=== PATIENT | female | born 1940 | race Caucasian/White ===

== ENCOUNTER 2018-06-26 19:04 | Outpatient (REF) | payer MEDICARE, SELFPAY ==
[2018-06-26 19:53] LABS: Bilirubin Negative (Negative); Blood Trace-lysed (Negative); Clarity Clear; Glucose Negative (Negative); Ketones Negative (Negative); Leukocyte Esterase Trace (Negative); Nitrite Negative (Negative); Specific Gravity 1.015 (1.005-1.025); Urobilinogen 0.2 EU/dL (Up TO 0.2); pH 8.5 (5-8)
[2018-06-26 20:26] LABS: Bacteria Negative HPF (Negative); C & S Indicated? Yes; Casts Negative LPF (Negative); Crystals Negative HPF (Negative); Epithelial Cells Negative HPF (Negative); Mucus Negative (Negative); Other Cells Negative (Negative); RBC Negative (0-2); WBC 0-2 HPF (0-5)
== END 2018-06-26 19:24 ==
LOC: LBN 19:04
DX: R30.0 Dysuria (principal)
CPT/HCPCS: 87077; 81003; 81015; 87086; 87186

== ENCOUNTER 2018-06-29 13:18 | Observation (INO) | payer MEDICARE, SELFPAY ==
[2018-06-29] VITALS (42 sets, daily range): BP systolic 113–160; BP diastolic 51–82; PULSE 65–88; RESP 13–26; TEMP 35.7–37; O2SAT 94–100
--- NOTE | 2018-06-29 13:44 | W.ED.GENAD ---
Discharge Plan Discharge Details Chief Complaint: Dizzy/Sync Primary Care Provider: Karin Miller ED Provider: Aly Brower Home Meds and New Rx's Prescriptions: No Action bupropion HCl [Wellbutrin SR] 150 mg tablet extended release 12 hr 150 mg PO TID Qty: 180 RF: 0 aspirin [Aspirin Low-Strength] 81 MG tablet,chewable 81 mg PO DAILY RF: 0 multivitamin [Daily Vitamin] 1 EACH tablet 1 ea PO DAILY RF: 0 fluticasone 16 GM spray,suspension 1 spray NS BID Qty: 1 RF: 0 propranolol 10 MG tablet 10 mg PO BID Qty: 180 RF: 4 omeprazole 20 MG capsule,delayed release(DR/EC) 20 mg PO DAILY Qty: 90 RF: 4 levothyroxine 25 MCG tablet 25 mcg PO DAILY Qty: 90 RF: 3 simvastatin 10 MG tablet 10 mg PO DAILY Qty: 90 RF: 3 Medical Decision Making 78-year-old female presents from home with 2 episodes of transient nausea, one episode of emesis, generalized malaise and weakness. She arrives afebrile, pulse in the 80s, blood pressure 1 5160s. She has a reassuring and unremarkable exam. Differential diagnosis includes dehydration, electrolyte abnormality, occult UTI, consideration of ACS. IV access established, given fluid bolus and antiemetic. Referred for EKG and laboratory test. Patient's laboratories revealed unremarkable CBC and chemistries. Her troponin is negative. Urinalysis negative with exception of slightly concentrated urine specific gravity of 1.015. X-ray without acute findings. CT scan of the head reveals 8 x 5 x 6 mm right occipital horn hyperdensity and question similar 4 mm hyperdense nodule adjacent to the lateral ventricle. Per radiology represents a small hemorrhages versus small sub-ependymal nodules. Therefore, [place] [facility] [place] discussed with on-call Neurology, Dr Mota. She recommends angiogram tonight, admission with daily 325 mg aspirin, permissive hypertension, follow-up MRI tomorrow. ECG Data Attestation: I personally reviewed and interpreted this ECG (s) as follows: Interpretation: Normal sinus rhythm, the rate is 82, there is first-degree AV block present, the QRS is narrow, T waves are inverted in leads V1 and V2, no ST segment elevation HPI General Mode of arrival: ambulatory. Date/Time Provider Initiated Documentation: 06/29/18 13:25. Limitations to Documentation: no limitations. Information obtained by: patient and family. History of Present Illness 78 year old F presents to the emergency department with the chief complaint of Nausea, described as moderate, and is localized to the abdomen. Patient started experiencing this hour(s) and it has been now resolved. No exacerbating factors reported . Patient notes loss of appetite and weakness; denies chest pain, cough, seizure and syncope. Patient did receive the following treatments prior to arrival, none HPI Narrative: 78-year-old female presents from home. She states that she awoke normally and ate breakfast. She then was mopping her floor when she felt nauseated, weak, diaphoretic. She sat and rested and it resolved over minutes time. She continued to mop and then had recurrence of nausea with a single episode of nonbilious, nonbloody emesis. She states again lasted minutes and then has improved by the time of arrival. She denies syncope. She did not have any chest pain or palpitations. She feels foggy in her head but does not have a headache. No recent travel. No known sick contacts Related Data Home Medications Medication Instructions Recorded Confirmed aspirin [Aspirin Low-Strength] 81 mg PO DAILY tab-cap 04/13/13 06/29/18 multivitamin [Daily Vitamin] 1 ea PO DAILY 04/04/15 06/29/18 fluticasone 1 spray NS BID #1 bottle 03/11/17 06/29/18 propranolol 10 mg PO BID #180 tab-cap 04/02/17 06/29/18 omeprazole 20 mg PO DAILY #90 tab-cap 07/22/17 06/29/18 levothyroxine 25 mcg PO DAILY #90 tab-cap 10/28/17 06/29/18 simvastatin 10 mg PO DAILY #90 tab-cap 01/27/18 06/29/18 bupropion HCl SR 150 mg tablet,12 150 mg PO TID #180 tab-cap 06/26/18 06/29/18 hr sustained-release Previous Rx's Medication Instructions Recorded omeprazole 20 mg PO DAILY #90 tab-cap 07/22/17 levothyroxine 25 mcg PO DAILY #90 tab-cap 10/28/17 simvastatin 10 mg PO DAILY #90 tab-cap 01/27/18 bupropion HCl SR 150 mg tablet,12 150 mg PO TID #180 tab-cap 06/26/18 hr sustained-release Allergies Allergy/AdvReac Type Severity Reaction Status Date / Time No Known Allergies Allergy Unverified 06/29/18 13:35 General Stated Complaint: Dizzy/Sync PARMINDER: 3 Review of Systems Review of Systems 8 systems reviewed and otherwise - PFSH Family History Mother Essential hypertension Depression Heart disease Hyperlipidemia Father Essential hypertension Heart disease Asthma Sister Diabetes Essential hypertension Depression Heart disease Hyperlipidemia Neoplasm Sister No problems noted. Brother Essential hypertension Depression Heart disease Grandfather Cerebrovascular accident Asthma Grandfather No problems noted. Grandmother Essential hypertension Heart disease Grandmother No problems noted. Daughter Neoplasm Son No problems noted. Daughter No problems noted. 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 Pleasant, well groomed, interactive. HEAD: Normocephalic, atraumatic ENT: Mucous membranes moist, oropharynx unremarkable, External ear exam unremarkable EYES: PERRL, EOMI NECK: Full ROM, no LAURENCE, no menigismus CHEST/RESP: Nontender, clear to auscultation bilateral, no wheeze/rhonchi/rales CARDIOVASCULAR: RRR, no murmur, rub derek. 2+ Rad pulse bilateral ABDOMEN: Soft, nontender, no mass. +Bowel sounds EXT: Full ROM, no edema, no rash Neuro: Grossly normal neurologic exam, conversant, interactive. Psych: Speech fluent, thoughts congruent, affect normal Course Vital Signs Respiratory Rate 13 06/29/18 13:25 Pulse Oximetry 97 06/29/18 13:25 Temperature 37 C 06/29/18 13:31 Temperature Source Skin 06/29/18 13:31 Pulse 86 06/29/18 13:31 Pulse 83 06/29/18 13:31 Respiratory Rate 17 06/29/18 13:40 Respiratory Effort Non-Labored 06/29/18 13:40 Respiratory Depth Normal 06/29/18 13:40 Respiratory Pattern Normal 06/29/18 13:40 Blood Pressure 157/73 H 06/29/18 13:31 Blood Pressure Mean 93 06/29/18 13:31 Blood Pressure Position Supine 06/29/18 13:31 Pulse Oximetry 100 06/29/18 13:31 Oxygen Delivery Method Room Air 06/29/18 13:31 Oxygen Flow Rate 0 06/29/18 13:31 Pain Level 0 06/29/18 13:31
--- NOTE | 2018-06-29 13:48 | ED.GENADUL_ITS ---
Discharge Plan Discharge Details Chief Complaint: Dizzy/Sync Primary Care Provider: Karin Miller ED Provider: Aly Brower Home Meds and New Rx's Prescriptions: No Action bupropion HCl [Wellbutrin SR] 150 mg tablet extended release 12 hr 150 mg PO TID Qty: 180 RF: 0 aspirin [Aspirin Low-Strength] 81 MG tablet,chewable 81 mg PO DAILY RF: 0 multivitamin [Daily Vitamin] 1 EACH tablet 1 ea PO DAILY RF: 0 fluticasone 16 GM spray,suspension 1 spray NS BID Qty: 1 RF: 0 propranolol 10 MG tablet 10 mg PO BID Qty: 180 RF: 4 omeprazole 20 MG capsule,delayed release(DR/EC) 20 mg PO DAILY Qty: 90 RF: 4 levothyroxine 25 MCG tablet 25 mcg PO DAILY Qty: 90 RF: 3 simvastatin 10 MG tablet 10 mg PO DAILY Qty: 90 RF: 3 Medical Decision Making 78-year-old female presents from home with 2 episodes of transient nausea, one episode of emesis, generalized malaise and weakness. She arrives afebrile, pulse in the 80s, blood pressure 1 5160s. She has a reassuring and unremarkable exam. Differential diagnosis includes dehydration, electrolyte abnormality, occult UTI , consideration of ACS. IV access established, given fluid bolus and antiemetic. Referred for EKG and laboratory test. Patient's laboratories revealed unremarkable CBC and chemistries. Her troponin is negative. Urinalysis negative with exception of slightly concentrated urine specific gravity of 1.015. X-ray without acute findings. CT scan of the head reveals 8 x 5 x 6 mm right occipital horn hyperdensity and question similar 4 mm hyperdense nodule adjacent to the lateral ventricle. Per radiology represents a small hemorrhages versus small sub-ependymal nodules. Therefore, [place] [facility] [place] with on-call Neurology, Dr Mota. She recommends angiogram tonight, admission with daily 325 mg aspirin, permissive hypertension, follow- up MRI tomorrow. ECG Data Attestation: I personally reviewed and interpreted this ECG (s) as follows: Interpretation: Normal sinus rhythm, the rate is 82, there is first-degree AV block present, the QRS is narrow, T waves are inverted in leads V1 and V2, no ST segment elevation HPI General Mode of arrival: ambulatory . Date/Time Provider Initiated Documentation: 06/29/18 13:25 . Limitations to Documentation: no limitations . Information obtained by: patient and family . History of Present Illness 78 year old F presents to the emergency department with the chief complaint of Nausea, described as moderate, and is localized to the abdomen. Patient started experiencing this hour(s) and it has been now resolved. No exacerbating factors reported . Patient notes loss of appetite and weakness; denies chest pain, cough, seizure and syncope. Patient did receive the following treatments prior to arrival, none HPI Narrative: 78-year-old female presents from home. She states that she awoke normally and ate breakfast. She then was mopping her floor when she felt nauseated, weak, diaphoretic. She sat and rested and it resolved over minutes time. She continued to mop and then had recurrence of nausea with a single episode of nonbilious, nonbloody emesis. She states again lasted minutes and then has improved by the time of arrival. She denies syncope. She did not have any chest pain or palpitations. She feels foggy in her head but does not have a headache. No recent travel. No known sick contacts Related Data Home Medications Medication Instructions Recorded Confirmed aspirin [Aspirin Low-Strength] 81 mg PO DAILY tab-cap 04/13/13 06/29/18 multivitamin [Daily Vitamin] 1 ea PO DAILY 04/04/15 06/29/18 fluticasone 1 spray NS BID #1 bottle 03/11/17 06/29/18 propranolol 10 mg PO BID #180 tab-cap 04/02/17 06/29/18 omeprazole 20 mg PO DAILY #90 tab-cap 07/22/17 06/29/18 levothyroxine 25 mcg PO DAILY #90 tab-cap 10/28/17 06/29/18 simvastatin 10 mg PO DAILY #90 tab-cap 01/27/18 06/29/18 bupropion HCl SR 150 mg tablet,12 150 mg PO TID #180 tab-cap 06/26/18 06/29/18 hr sustained-release Previous Rx's Medication Instructions Recorded omeprazole 20 mg PO DAILY #90 tab-cap 07/22/17 levothyroxine 25 mcg PO DAILY #90 tab-cap 10/28/17 simvastatin 10 mg PO DAILY #90 tab-cap 01/27/18 bupropion HCl SR 150 mg tablet,12 150 mg PO TID #180 tab-cap 06/26/18 hr sustained-release Allergies Allergy/AdvReac Type Severity Reaction Status Date / Time No Known Allergies Allergy Unverified 06/29/18 13:35 General Stated Complaint: Dizzy/Sync PARMINDER: 3 Review of Systems Review of Systems 8 systems reviewed and otherwise - PFSH Family History Mother Essential hypertension Depression Heart disease Hyperlipidemia Father Essential hypertension Heart disease Asthma Sister Diabetes Essential hypertension Depression Heart disease Hyperlipidemia Neoplasm Sister No problems noted. Brother Essential hypertension Depression Heart disease Grandfather Cerebrovascular accident Asthma Grandfather No problems noted. Grandmother Essential hypertension Heart disease Grandmother No problems noted. Daughter Neoplasm Son No problems noted. Daughter No problems noted. 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 Pleasant, well groomed, interactive. HEAD: Normocephalic, atraumatic ENT: Mucous membranes moist, oropharynx unremarkable, External ear exam unremarkable EYES: PERRL, EOMI NECK: Full ROM, no LAURENCE, no menigismus CHEST/RESP: Nontender, clear to auscultation bilateral, no wheeze/rhonchi/rales CARDIOVASCULAR: RRR, no murmur, rub derek. 2+ Rad pulse bilateral ABDOMEN: Soft, nontender, no mass. +Bowel sounds EXT: Full ROM, no edema, no rash Neuro: Grossly normal neurologic exam, conversant, interactive. Psych: Speech fluent, thoughts congruent, affect normal Course Vital Signs Respiratory Rate 13 06/29/18 13:25 Pulse Oximetry 97 06/29/18 13:25 Temperature 37 C 06/29/18 13:31 Temperature Source Skin 06/29/18 13:31 Pulse 86 06/29/18 13:31 Pulse 83 06/29/18 13:31 Respiratory Rate 17 06/29/18 13:40 Respiratory Effort Non-Labored 06/29/18 13:40 Respiratory Depth Normal 06/29/18 13:40 Respiratory Pattern Normal 06/29/18 13:40 Blood Pressure 157/73 H 06/29/18 13:31 Blood Pressure Mean 93 06/29/18 13:31 Blood Pressure Position Supine 06/29/18 13:31 Pulse Oximetry 100 06/29/18 13:31 Oxygen Delivery Method Room Air 06/29/18 13:31 Oxygen Flow Rate 0 06/29/18 13:31 Pain Level 0 06/29/18 13:31
[2018-06-29 13:54] LABS: Abs Immature Grans 0.03 k/cumm (0.0-0.09); Absolute Basophil Count 0.03 k/cumm (0.0-0.2); Absolute Eosinophil Count 0.11 k/cumm (0.0-0.7); Absolute Lymphocyte Count 0.95 k/cumm (1.2-3.4); Absolute Monocyte Count 0.57 k/cumm (0.11-0.7); Basophils % 0.5; Eosinophils % 1.9; HCT 35.6 % (36.0-46.0); HGB 11.7 g/dL (12.0-15.5); Immature Grans % 0.5; Lymphocytes % 16.4; Mean Corp. HGB Concentration 32.9 g/dL (32.0-36.0); Mean Corpuscular Hemoglobin 31.8 pg (27.0-33.0); Mean Corpuscular Volume 96.7 fL (80-95); Monocytes % 9.8; Neutrophils % 70.9; Platelet Count 157 x1000/uL (130-400); RBC 3.68 m/cumm (4.00-5.20); RBC Distribution Width 12.5 % (11.7-14.6); White Blood Cell Count 5.79 k/cumm (4.4-10.8)
[2018-06-29] MEDS: Normal Saline 1,000 ML 1000 ML IV (13:54)
[2018-06-29] MEDS: Ondansetron 4 MG/2 ML VIAL IVP (13:56)
--- NOTE | 2018-06-29 13:58 | DI.COMBO_ITS ---
SYMPTOM/DIAGNOSIS: NAUSEA, VOMITING FRONTAL AND LATERAL CHEST: Comparison is made with 03/12/17. Heart size and pulmonary vasculature are within normal limits. The lungs are clear. No effusions or pneumothoraces are identified. There are old right rib fractures. There is underlying COPD. The bones are intact. IMPRESSION: No acute pulmonary process. NONCONTRAST HEAD CT: Comparison is made with CT scan of 02/15/12. Comparison MRI is 07/15/13. The ventricles and sulci are consistent with the patient's age. The ventricles are intact. The basilar cisterns are patent. No acute intracranial hemorrhage, infarct or mass effect is identified. 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 There are two small subependymal nodules again noted , one in the lateral aspect of the occipital horn of the right ventricular system measuring 0.8 cm. maximally. There is a second subependymal nodule seen of the lateral aspect of the left lateral ventricle measuring 0.4 cm. maximally. These were present on prior examinations. The visualized paranasal sinuses are clear. The mastoid air cells are well pneumatized. The calvarium is intact. IMPRESSION: 1. No acute abnormality intracranially. 2. 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 If there is further imaging warranted, an MRI without and with contrast should be considered.
[2018-06-29 14:09] LABS: ALT 21 U/L (12-78); AST 21 U/L (15-37); Albumin 3.6 g/dL (3.4-5.0); Alkaline Phosphatase 129 U/L (46-116); Anion Gap 8.5 mmol/L (3-11); BUN 17 mg/dL (7-18); Bilirubin, Total 0.5 mg/dL (0.2-1.0); CO2 28.5 mmol/L (21.0-32.0); Chloride 100 mmol/L (98-107); Estimated GFR 48.16 (mL/min/1.73m2); Glucose 130 mg/dL (70-100); Magnesium 2.5 mg/dL (1.8-2.4); Potassium 4.2 mmol/L (3.5-5.1); Sodium 137 mmol/L (136-145); Total Protein 7.1 g/dL (6.4-8.2)
[2018-06-29 14:10] LABS: Troponin I < 0.02 ng/mL (0.00-0.06)
[2018-06-29 14:44] LABS: Bilirubin Negative (Negative); Blood Trace-intact (Negative); Clarity Clear; Glucose Negative (Negative); Ketones Negative (Negative); Leukocyte Esterase Negative (Negative); Nitrite Negative (Negative); Specific Gravity 1.015 (1.005-1.025); Urobilinogen 0.2 EU/dL (Up TO 0.2)
[2018-06-29 14:53] LABS: Bacteria Negative HPF (Negative); C & S Indicated? No; Casts Negative LPF (Negative); Crystals Negative HPF (Negative); Epithelial Cells Rare HPF (Negative); Mucus Negative (Negative); RBC 0-2 (0-2); WBC Negative HPF (0-5)
--- NOTE | 2018-06-29 15:03 | DI.VRAD_ITS ---
EXAM: CT Head Without Intravenous Contrast EXAM DATE/TIME: 06/29/2018 1:59 PM CLINICAL HISTORY: 78 years old, female; Signs and symptoms; Other: Nausea, vomiting TECHNIQUE: Axial computed tomography images of the head/brain without intravenous contrast. Coronal and sagittal reformatted images were created and reviewed. COMPARISON: CT HEAD WITHOUT CONTRAST 02/15/2012 2:07 PM FINDINGS: Brain: There is mild diffuse heterogeneity of the white matter attenuation, consistent with chronic white matter ischemic changes. Mild cerebral atrophy. Again noted multiple lacunar infarctions in the basal ganglia bilaterally Ventricles: 8 x 5x 6 mm hyperdensity in the lateral aspect of the right occipital horn (3:27; 9:52). There may be a similar 4 mm hyperdense nodule adjacent to the lateral ventricle (3:27). These may represent small hemorrhages versus small subependymal nodules. Bones/joints: Normal. No acute fracture. Sinuses: Normal as visualized. No acute sinusitis. Mastoid air cells: Normal as visualized. No mastoid effusion. Soft tissues: Normal. IMPRESSION: 8 x 5x 6 mm hyperdensity in the lateral aspect of the right occipital horn (3:27; 9:52). There may be a similar 4 mm hyperdense nodule adjacent to the lateral ventricle (3:27). These may represent small hemorrhages versus small subependymal nodules. . Recommend MRI for further evaluation Dictated and Authenticated by: Judi Pearce MD. Ordering:VANDANA VEE MD
--- NOTE | 2018-06-29 15:04 | DI.VRAD_ITS ---
EXAM: XR Chest, 2 Views EXAM DATE/TIME: 06/29/2018 2:34 PM CLINICAL HISTORY: 78 years old, female; Signs and symptoms; Other: Nausea, vomiting TECHNIQUE: XR of the chest, 2 views. COMPARISON: CR CHEST 2 VIEWS PA,LAT 03/12/2017 11:03 PM FINDINGS: Lungs: Hyperexpanded lung gill consistent with COPD. No focal consolidation. Pleural space: Unremarkable. No pleural effusion. No pneumothorax. Heart/Mediastinum: Unremarkable. No cardiomegaly. Bones/joints: Healed right rib fractures Osseous structures are stable IMPRESSION: No focal consolidation. Hyperexpanded lung gill consistent with COPD Dictated and Authenticated by: Judi Pearce MD. Ordering:VANDANA VEE MD
[2018-06-29 15:36] LABS: INR 1.1 (1.0-3.5); Prothrombin Time 10.4 sec (9.3-10.8)
--- NOTE | 2018-06-29 16:07 | DI.CT_ITS ---
SYMPTOM/DIAGNOSIS: ? HYPERDENSITY ON CT, NAUSEA, DIZZY CTA HEAD: CT angiography was performed with multi slice acquisition and multi planar and 3D reconstruction. The internal carotid arteries show no significant stenosis, occlusion or aneurysm. The anterior cerebral arteries are unremarkable without significant stenosis, occlusion or aneurysm. The middle cerebral arteries are unremarkable without significant stenosis, occlusion or aneurysm. The posterior cerebral arteries are unremarkable without significant stenosis, occlusion or aneurysm. There is minimal calcific plaque seen in the intracranial portion of the vertebral arteries bilaterally but no significant stenosis, occlusion or aneurysm is present. The basilar artery shows no significant stenosis, occlusion or aneurysm. Note is made of the tiny subependymal nodular density at the lateral aspect of the right occipital horn. There is no abnormal enhancement noted. IMPRESSION: No acute abnormality. CTA NECK: CT angiography was performed with multi slice acquisition and multi planar and 3D reconstruction. Routine examination was performed. There is minimal calcific plaque seen in the common carotid arteries bilaterally but no significant stenosis, occlusion or aneurysm is seen. No dissection is identified. The external carotid arteries are unremarkable without stenosis, occlusion or aneurysm. No dissection is seen. The internal carotid arteries show calcific plaque within the proximal portions bilaterally. No significant stenosis, occlusion, dissection or aneurysm is present. The vertebral arteries show mild calcific plaque on the right. No significant stenosis, occlusion, dissection or aneurysm is present. Degenerative changes are seen in the cervical spine. The lung apices appear clear. IMPRESSION: No acute abnormality.
[2018-06-29] MEDS: Omnipaque 350 MG/ML 100 ML BTL IJ (17:46)
--- NOTE | 2018-06-29 18:03 | DI.VRAD_ITS ---
EXAM: CT Angiography Head With Intravenous Contrast CLINICAL HISTORY: 78 years old, female; Signs and symptoms; Other: Question hyperdensity on CT, nausea, dizziness. TECHNIQUE: Axial computed tomographic angiography images of the head with intravenous contrast using CT angiography protocol. All CT scans at this facility use at least one of these dose optimization techniques: automated exposure control; mA and/or kV adjustment per patient size (includes targeted exams where dose is matched to clinical indication); or iterative reconstruction. MIP reconstructed images were created and reviewed. CONTRAST: 85 mL of Omnipaque 350 administered intravenously. COMPARISON: No relevant prior studies available. FINDINGS: Right internal carotid artery: No acute findings. Intracranial segment is patent with no significant stenosis. No aneurysm. Right anterior cerebral artery: Unremarkable. No occlusion or significant stenosis. No aneurysm. Right middle cerebral artery: Unremarkable. No occlusion or significant stenosis. No aneurysm. Right posterior cerebral artery: Unremarkable. No occlusion or significant stenosis. No aneurysm. Right vertebral artery: Minimal calcified plaque within the right intracranial vertebral artery. No occlusion or significant stenosis. No aneurysm. Left internal carotid artery: No acute findings. Intracranial segment is patent with no significant stenosis. No aneurysm. Left anterior cerebral artery: Unremarkable. No occlusion or significant stenosis. No aneurysm. Left middle cerebral artery: Unremarkable. No occlusion or significant stenosis. No aneurysm. Left posterior cerebral artery: Unremarkable. No occlusion or significant stenosis. No aneurysm. Left vertebral artery: Minimal calcified plaque within the left intracranial vertebral artery. No occlusion or significant stenosis. No aneurysm. Basilar artery: Unremarkable. No occlusion or significant stenosis. No aneurysm. Other findings: Tiny subependymal nodular density within the lateral aspect of the right occipital horn is less well-visualized on this examination. No abnormal enhancement. IMPRESSION: No acute findings. EXAM: CT Angiography Neck With Intravenous Contrast CLINICAL HISTORY: 78 years old, female; Signs and symptoms; Other: Question hyperdensity on CT, nausea, dizziness. TECHNIQUE: Axial computed tomographic angiography images of the neck with intravenous contrast using CT angiography protocol. All CT scans at this facility use at least one of these dose optimization techniques: automated exposure control; mA and/or kV adjustment per patient size (includes targeted exams where dose is matched to clinical indication); or iterative reconstruction. MIP reconstructed images were created and reviewed. CONTRAST: 85 mL of Omnipaque 350 administered intravenously. 85 mL of Omnipaque 350 administered intravenously. COMPARISON: CT HEAD WO 06/29/2018 2:12 PM FINDINGS: VASCULATURE: Right common carotid artery: Minimal calcified plaque within the right common carotid artery. No significant stenosis. No dissection or occlusion. Right internal carotid artery: Calcified plaque within the proximal right ICA. Extracranial segment is patent with no significant stenosis. No dissection or occlusion. Right external carotid artery: Unremarkable. No occlusion. Right vertebral artery: Minimal calcified plaque at the origin of the right vertebral artery. No significant stenosis. No dissection or occlusion. Left common carotid artery: Minimal calcified plaque within the left CCA. No significant stenosis. No dissection or occlusion. Left internal carotid artery: Calcified plaque within the proximal left ICA. Extracranial segment is patent with no significant stenosis. No dissection or occlusion. Left external carotid artery: Unremarkable. No occlusion. Left vertebral artery: Unremarkable. No significant stenosis. No dissection or occlusion. Other vasculature: Mild calcified plaque within the aortic arch. Mild calcified and noncalcified plaque within the proximal left subclavian artery. No significant stenosis. NECK: Bones/joints: Degenerative spondylosis of the cervical spine. No acute fracture. No dislocation. Soft tissues: Unremarkable as visualized. No mass. Lung apices: Dependent changes within the lungs bilaterally. CAROTID STENOSIS REFERENCE USING NASCET CRITERIA: % ICA stenosis = (1 - narrowest ICA diameter/diameter of distal cervical ICA) x 100. Mild - <50% stenosis. Moderate - 50-69% stenosis. Severe - 70-94% stenosis. Near occlusion - 95-99% stenosis. Occluded - 100% stenosis. IMPRESSION: No acute findings. Dictated and Authenticated by: Chase Gutierrez MD. Ordering:VANDANA VEE MD
--- NOTE | 2018-06-29 22:42 | HPE_ITS ---
Date of service: 06/29/18 Time of Service: 22:41 Assessment and Plan (1) Episode of dizziness: Start date: 05/07/18 Current visit: Yes Status: Acute These episodes have been occurring over the last month and a worsening. A appear to be associated with flushing and symptoms of either vagal response or another cardiovascular response and need to rule out arrhythmia since she also has possible small hemorrhages by CT scan in the ED department today. She may have embolic phenomenon and anticoagulation for possible dysrhythmia and embolic phenomena will be postponed until we have MRI of the brain with risk of increased bleeding in the brain if these are small hemorrhages. She will be placed on telemetry for observation. (2) Occipital mass: Start date: 06/29/18 Current visit: Yes Status: Acute CTA of the brain and neck along with CT of the head did not reveal any specific bleeding abnormalities or risk for stroke. These hypodensities need to be further evaluated by MRI of the brain in the morning and we will watch for dysrhythmias for possible risk for embolic phenomena overnight with trending troponins. Consultation with appropriate specialty will be sought after further information is gathered. If she is stable, the rest of this workup can be done as an outpatient. History of Present Illness Chief Complaint: Dizziness with associated vagal symptoms. 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 She has been having symptoms over the last month flushing with dizziness and tremors which are nonfocal. 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 She denies any chest pain with episode but does have associated dyspnea and today nausea with vomiting. She also becomes diaphoretic. The symptoms were worse with her episode today. She was evaluated in the emergency room and found to have abnormal findings on her CT scan of the head and a CTA was unrevealing. Carotids were also studied on CTA and were not occlusive. She has been on baby aspirin and this was increased to a regular aspirin but I will not start her on Lovenox for DVT prophylaxis in case these abnormal findings on CT or hemorrhages. The CT report did state there was an 8 x 5 x 6 mm right occipital horn hyperdensity patient similar 4 mm hyperdense nodule adjacent to the lateral ventricle which could be small hemorrhages versus small sub-ependymal nodules. She has no history of palpitations or seizure activity and no absence spells but is noticing that her short-term memory is decreasing. Risk factors for CAD would be mild hyperglycemia recently and hyperlipidemia with no smoking history and no history of hypertension or strong family history of early heart disease though there is heart disease diabetes and hypertension in her family history. She denies any absence spells with her short-term memory loss. She has gained weight since penitentiary and has not been active with exercise. These episodes are intermittent though increasing in intensity today. They are not provoked by any light activity. Pertinent review of systems otherwise unrevealing patient having no GI complaints other than today with her nausea and vomiting with the acute episodes. She has no other neurological complaints other than her global tremors and short-term memory loss. No complaints. She does have increasing dyspnea with exertion recently, no peripheral edema. Review of Systems Review of Systems As per HPI otherwise negative. [facility] Family History Mother Essential hypertension Depression Heart disease Hyperlipidemia Father Essential hypertension Heart disease Asthma Sister Diabetes Essential hypertension Depression Heart disease Hyperlipidemia Neoplasm Sister No problems noted. Brother Essential hypertension Depression Heart disease Grandfather Cerebrovascular accident Asthma Grandfather No problems noted. Grandmother Essential hypertension Heart disease Grandmother No problems noted. Daughter Neoplasm Son No problems noted. Daughter No problems noted. 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[employer] [place] pets and animals: No Smoking/Tobacco Use Status: Never alcohol intake: never substance use type: does not use alessandra/anabaptism: Baptism special alessandra needs: No Surgical History Ligation of fallopian tube (~1977) Meds Home Medications Medication Instructions Recorded Confirmed Type aspirin [Aspirin Low-Strength] 81 mg PO DAILY tab-cap 04/13/13 06/29/18 History multivitamin [Daily Vitamin] 1 ea PO DAILY 04/04/15 06/29/18 History fluticasone 1 spray NS BID #1 bottle 03/11/17 06/29/18 History propranolol 10 mg PO BID #180 tab-cap 04/02/17 06/29/18 History omeprazole 20 mg PO DAILY #90 tab-cap 07/22/17 06/29/18 Rx levothyroxine 25 mcg PO DAILY #90 tab-cap 10/28/17 06/29/18 Rx simvastatin 10 mg PO DAILY #90 tab-cap 01/27/18 06/29/18 Rx bupropion HCl SR 150 mg tablet,12 150 mg PO TID #180 tab-cap 06/26/18 06/29/18 Rx hr sustained-release Allergies Allergy/AdvReac Type Severity Reaction Status Date / Time No Known Allergies Allergy Unverified 06/29/18 13:35 Exam Narrative Exam Narrative: General: Patient is anxious with pressured speech but normal affect and good eye contact. She is alert and oriented ?3. In no acute distress. HEENT: Normocephalic with eyes revealing pupils equal reactive to light especially in the extraocular movement intact. Sclera anicteric. Ears normal. Oropharynx clear with pink moist mucosa. Neck: Supple with no JVD. No auscultated carotid bruits. Lungs: Clear to auscultation percussion with no focal rales or rhonchi. Normal inspiratory to expiratory phase ratio in no expiratory wheeze. Heart: Regular rate and rhythm no murmurs or gallops appreciated, no rubs. Breasts: Exam deferred. Back: Without CVA tenderness, kyphotic with decreased range of motion. Abdomen: Soft, slightly protuberant with normal bowel sounds in all quadrants. No palpable hepatosplenomegaly. Nontender. Genitalia and rectal exam: Deferred. Extremities: Without clubbing cyanosis or edema and no joint swelling with fair range of motion of all joints. Peripheral pulses are intact with good capillary refill. Skin: Warm and dry with no rashes. Neuro: No nerves II through XII grossly intact, no focalizing motor deficits. No Babinski's. DTRs are physiologic and symmetrical. Psych: Slightly anxious, memory appears to be intact except for her reported short-term memory loss with long-term memory normal. Mood is not depressed today. Results Labs : 06/29/18 13:45 06/29/18 13:45 Laboratory Results - last 24 hr 06/29/18 06/29/18 06/29/18 13:45 13:45 13:45 WBC 5.79 RBC 3.68 L Hgb 11.7 L Hct 35.6 L MCV 96.7 H MCH 31.8 MCHC 32.9 RDW 12.5 Plt Count 157 MPV 11.0 Immature Gran % 0.5 Neutrophils % 70.9 Lymphocytes % 16.4 Monocytes % 9.8 Eosinophils % 1.9 Basophils % 0.5 Absolute Neutrophils 4.10 Absolute Lymphocytes 0.95 L Absolute Monocytes 0.57 Absolute Eosinophils 0.11 Absolute Basophils 0.03 PT 10.4 INR 1.1 Sodium 137 Potassium 4.2 Chloride 100 Carbon Dioxide 28.5 Anion Gap 8.5 BUN 17 Creatinine 1.10 H Estimated GFR/1.73 m2 48.16 Glucose 130 H Calcium 9.0 Magnesium 2.5 H Total Bilirubin 0.5 AST 21 ALT 21 Alkaline Phosphatase 129 H Troponin I < 0.02 Total Protein 7.1 Albumin 3.6 Urine Color Urine Clarity Urine pH Ur Specific [place] Urine Protein Urine Ketones Urine Blood Urine Nitrite Urine Bilirubin Urine Urobilinogen Ur Leukocyte Esterase Urine RBC Urine WBC Ur Epithelial Cells Urine Crystals Urine Bacteria Urine Casts Urine Mucus Ur Culture Indicated? Urine Glucose 06/29/18 14:37 WBC RBC Hgb Hct MCV MCH MCHC RDW Plt Count MPV Immature Gran % Neutrophils % Lymphocytes % Monocytes % Eosinophils % Basophils % Absolute Neutrophils Absolute Lymphocytes Absolute Monocytes Absolute Eosinophils Absolute Basophils PT INR Sodium Potassium Chloride Carbon Dioxide Anion Gap BUN Creatinine Estimated GFR/1.73 m2 Glucose Calcium Magnesium Total Bilirubin AST ALT Alkaline Phosphatase Troponin I Total Protein Albumin Urine Color Yellow Urine Clarity Clear Urine pH 8.0 Ur Specific [place] 1.015 Urine Protein Negative Urine Ketones Negative Urine Blood Trace-intact H Urine Nitrite Negative Urine Bilirubin Negative Urine Urobilinogen 0.2 Ur Leukocyte Esterase Negative Urine RBC 0-2 Urine WBC Negative Ur Epithelial Cells Rare Urine Crystals Negative Urine Bacteria Negative Urine Casts Negative Urine Mucus Negative Ur Culture Indicated? No Urine Glucose Negative
[2018-06-30] VITALS (9 sets, daily range): BP systolic 109–128; BP diastolic 56–75; PULSE 67–76; RESP 16–18; TEMP 36.2–36.6; O2SAT 94–97
[2018-06-30] MEDS: Simvastatin 10 MG TAB PO
[2018-06-30 00:19] LABS: TSH (W/Ref FT4) 3.86 uIU/mL (0.358-3.74)
[2018-06-30 00:24] LABS: Troponin I < 0.02 ng/mL (0.00-0.06)
[2018-06-30 00:43] LABS: FREE T4 0.91 ng/dL (0.76-1.46)
[2018-06-30] MEDS: Aspirin 325 MG TAB PO ×2 (01:06→08:14)
[2018-06-30 04:11] LABS: Troponin I < 0.02 ng/mL (0.00-0.06)
[2018-06-30] MEDS: Levothyroxine 25 MCG TAB PO (06:31)
[2018-06-30 07:26] LABS: HCT 34.6 % (36.0-46.0); HGB 11.1 g/dL (12.0-15.5); Mean Corp. HGB Concentration 32.1 g/dL (32.0-36.0); Mean Corpuscular Hemoglobin 31.5 pg (27.0-33.0); Mean Corpuscular Volume 98.3 fL (80-95); Mean Platelet Volume 11.6 fL (8.0-11.0); Platelet Count 140 x1000/uL (130-400); RBC 3.52 m/cumm (4.00-5.20); RBC Distribution Width 12.7 % (11.7-14.6); White Blood Cell Count 4.34 k/cumm (4.4-10.8)
[2018-06-30 07:39] LABS: ALT 19 U/L (12-78); AST 18 U/L (15-37); Albumin 3.2 g/dL (3.4-5.0); Alkaline Phosphatase 106 U/L (46-116); Anion Gap 10.1 mmol/L (3-11); BUN 17 mg/dL (7-18); Bilirubin, Total 0.2 mg/dL (0.2-1.0); CO2 26.9 mmol/L (21.0-32.0); CREATININE 0.98 mg/dL (0.55-1.02); Calcium 8.5 mg/dL (8.5-10.1); Chloride 104 mmol/L (98-107); Estimated GFR 55.03 (mL/min/1.73m2); Glucose 90 mg/dL (70-100); Potassium 3.8 mmol/L (3.5-5.1); Sodium 141 mmol/L (136-145); Total Protein 6.2 g/dL (6.4-8.2)
--- NOTE | 2018-06-30 07:52 | PDOC.CMIN ---
- If Service Date Differs Date of service: 06/30/18 Time of Service: 07:52 Care Management Initial Assess REASON FOR HOSPITALIZATION:: Dizziness, abnormal brain CT scan. PAST MEDICAL HISTORY/PAST SURGICAL HISTORY:: Allergic rhinitis, benign familial tremor, depression, GERD, hyperlipdemia, occipital mass, varicose veins, osteoporosis, hypertension, carotid artery stenosis, LULU II, atrophic vaginitis, hypothyroidism. Surgical hx: ligation of fallopian tube. PREVIOUS FUNCTIONAL STATUS/SOCIAL/FAMILY SUPPORTS:: Laya resides in her own home in [place] with her , Ganesh. She has three adult children; two whom do not live locally and one son, . 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 She is indpendent with her ADLs and transportation and reports that she has supports and all she needs at home. CURRENT FUNCTIONAL STATUS:: Laya is sitting in her bed with , Ganesh, at bedside, when CM visits this morning. She is engaged in conversation, makes good eye contact, and is talkative. Laya reports that she is feeling much better than when she came to the ER yesterday and that the dizziness has subsided. Laya continues to be monitored on telemetry, had an US this morning, and will have a MRI today. ADVANCE DIRECTIVES:: On file at [facility]. Health care agent: Nishant Arevalo. Has patient been provided with information about the portal?: Yes Did the patient sign up for the portal?: No CODE STATUS:: Full Code INSURANCE COVERAGE / FINANCIAL ISSUES:: [facility] [employer], Medicare. CURRENT HOME/COMMUNITY SERVICES/EQUIPMENT:: No current home or community services. PRIMARY CARE PHYSICIAN:: Karin Miller. POTENTIAL DISCHARGE NEEDS:: Follow up appointment with PCP. PATIENT/FAMILY EDUCATION NEEDS:: Discharge education, any limitations and follow up plan of care. Ask Me Three discussion. ANTICIPATED BARRIERS TO DISCHARGE:: No anticipated barriers to discharge. TRANSPORTATION:: Laya will transport via private vehicle with her , Ganesh. PLAN:: Laya will discharge when medically ready per MD. Anticipate pt will discharge with no services and follow up with her PCP. CM will continue to offer support to patient, family and care team regarding discharge planning and disposition.
--- NOTE | 2018-06-30 07:59 | INITIAL_ITS ---
- If Service Date Differs Date of service: 06/30/18 Time of Service: 07:52 Care Management Initial Assess REASON FOR HOSPITALIZATION:: Dizziness, abnormal brain CT scan. PAST MEDICAL HISTORY/PAST SURGICAL HISTORY:: Allergic rhinitis, benign familial tremor, depression, GERD, hyperlipdemia, occipital mass, varicose veins, osteoporosis, hypertension, carotid artery stenosis, LULU II, atrophic vaginitis , hypothyroidism. Surgical hx: ligation of fallopian tube. PREVIOUS FUNCTIONAL STATUS/SOCIAL/FAMILY SUPPORTS:: Laya resides in her own home in [place] with her , Ganesh. She has three adult children; two whom do not live locally and one son, . 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 She is indpendent with her ADLs and transportation and reports that she has supports and all she needs at home. CURRENT FUNCTIONAL STATUS:: Laya is sitting in her bed with , Ganesh, at bedside, when CM visits this morning. She is engaged in conversation, makes good eye contact, and is talkative. Laya reports that she is feeling much better than when she came to the ER yesterday and that the dizziness has subsided. Laya continues to be monitored on telemetry, had an US this morning , and will have a MRI today. ADVANCE DIRECTIVES:: On file at [facility]. Health care agent: Nishant Arevalo. Has patient been provided with information about the portal?: Yes Did the patient sign up for the portal?: No CODE STATUS:: Full Code INSURANCE COVERAGE / FINANCIAL ISSUES:: [facility] [employer], Medicare. CURRENT HOME/COMMUNITY SERVICES/EQUIPMENT:: No current home or community services. PRIMARY CARE PHYSICIAN:: Karin Miller. POTENTIAL DISCHARGE NEEDS:: Follow up appointment with PCP. PATIENT/FAMILY EDUCATION NEEDS:: Discharge education, any limitations and follow up plan of care. Ask Me Three discussion. ANTICIPATED BARRIERS TO DISCHARGE:: No anticipated barriers to discharge. TRANSPORTATION:: Laya will transport via private vehicle with her , Ganesh. PLAN:: Laya will discharge when medically ready per MD. Anticipate pt will discharge with no services and follow up with her PCP. CM will continue to offer support to patient, family and care team regarding discharge planning and disposition.
--- NOTE | 2018-06-30 08:00 | DI.MRI_ITS ---
SYMPTOMS/DIAGNOSIS: RIGHT OCCIPITAL HYPERDENSITY, DIZZINESS MRI OF THE BRAIN: Pre and post contrast examination. Comparison examination is 07/15/13. Comparison CT scan is 06/29/18. The diffusion weighted images show no evidence of an acute infarct. The ventricles and sulci are consistent with the patient' s age. Areas of T2 hyperintensity are present in the white matter consistent with small vessel ischemic disease. No acute midline shift or mass effect is identified. No intracranial hemorrhage is present. There is again seen a nonenhancing area of nodularity along the lateral aspect of the right occipital horn. It is unchanged dating back to 2012. No enhancement is seen. 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 No other abnormal enhancement is seen. There is a flow void in the [place]. The pituitary gland appears grossly unremarkable. The visualized paranasal sinuses show no acute abnormality. The orbits and retroorbital soft tissues are unremarkable. IMPRESSION: 1. No evidence of an acute infarct or intracranial hemorrhage. 2. Age-related cerebral atrophy and small vessel ischemic disease. 3. 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
[2018-06-30] MEDS: Propranolol 10 MG TAB PO ×2 (08:14→20:04)
[2018-06-30] MEDS: Multivitamin TAB 1 TAB PO (08:15)
[2018-06-30] MEDS: Omeprazole 20 MG CAPCR PO (08:15)
[2018-06-30] MEDS: buPROPion-CR 150 MG TABCR PO ×4 (08:15→20:04)
--- NOTE | 2018-06-30 09:20 | DI.US_ITS ---
SYMPTOM/DIAGNOSIS: POSSIBLE CVA, DIZZY, VOMITING CAROTID ULTRASOUND: Routine examination was performed. Calcific plaque is seen in the distal common carotid arteries and carotid bulbs bilaterally. On the right, no hemodynamically significant velocity elevations are seen. The right vertebral artery is antegrade. On the left, there is no hemodynamically significant velocity elevation present. The left vertebral artery is antegrade. IMPRESSION: No evidence of hemodynamically significant velocity elevations. The findings are consistent with less than 50% narrowing of the internal carotid arteries bilaterally.
[2018-06-30 09:40] LABS: Cholesterol 186 mg/dL (50-200); HDL Cholesterol 56 mg/dL (40-60); LDL CHOLESTEROL 118 mg/dL (<100); Triglyceride 91 mg/dL (30-150)
--- NOTE | 2018-06-30 11:55 | PHARADMIT ---
Admission Pharmacy Clinical Review DIZZINESS, ABNORMAL CT SCAN of BRAIN Code Status Full Code Current Weight Wgt- 72.5 kg Renally Cleared and Narrow Therapeutic Index Meds CrCl~ 43.2 mL/min Meds-OK QTc Value / Action Taken na BP Control, Fever BP-123/75 Tmax- 36.5c Electrolytes reviewed Na-141 K+3.8 Mag-2.5 DVT Prophylaxis ASA, Opiate Usage / Scheduled Bowel Regimen Ordered No Yes Plt/SCr for Heparin / Enoxaparin Plts-140 SCr-0.698 INR for Warfarin inr-1.1 H/H stable, WBC/Bands H&H- 11.1/34.6 WBC- 4.34 Antibiotic appropriateness none Cultures and Sensitivities none Surgical ABX d/c within 24 hr na DM control / Insulin Dosing BG- 90 Heart Failure (Check EF%) (SUSANA's, B-Block, Diuretics) Propranolol, IV to PO Switch No Home Meds Reviewed Yes Home Meds Not Ordered Flonase, Comments
[2018-06-30] MEDS: Gadoterate meglumine 20 ML VIAL 15 ML IVP (12:20)
--- NOTE | 2018-06-30 16:32 | PGE_ITS ---
Date of service: 06/30/18 Time of Service: 16:20 Assessment and Plan (1) Episode of dizziness: Current visit: Yes Status: Acute Exertional symptoms occuring over the last month, accompanied by flushing , subjective 'shakiness', dyspnea, and now diaphoresis with nausea and vomiting. Abnormality on CT is old and unchanged, and no acute IC abnormality was noted by MRI. Given exertional component will undergo a treadmill stress test and reevaluate pending results. 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 Confirmed by MRI today. Subjective Interval history since last seen: Very pleasant 78-year-old woman with past medical history significant for hypertension, dyslipidemia, and hypothyroidism who was admitted from [facility] ED with reported dizziness with exertion. Mrs. Arevalo reports symptoms of flushing with dizziness, tremors, and dyspnea ongoing for approximately one month. She states that these symptoms are all exertional, and usually occur when she is doing housework. 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 She denies any chest pain or palpitations with these episodes, but on the day of her admission she did have diffuse diaphoresis with accompanied nausea and vomiting. Initial evaluation in the emergency room included a CT scan of the head that showed a potential lesion in the right occipital area, and the patient was admitted for further work-up for potential CVA. However, in comparison to old images it appears that the patient has had these findings dating back minimally to 2012. Regardless she underwent imaging with an MRI which ruled out any acute pathology including stroke, and noted stability in the nonenhancing occipital nodule. Given her history of carotid artery disease she also underwent a carotid ultrasound which showed no evidence of hemodynamically significant disease. Given that her symptoms are exertional an ETT has been ordered and is pending at this time. No overnight events reported. Patient remains afebrile. Exam Narrative Exam Narrative: General: Patient appears comfortable, sitting up in bed. She is alert and oriented ?3. In no acute distress. Neck: Supple. Lungs: Clear to auscultation, with no crackles, rhonchi, or wheezing. Heart: Regular rate and rhythm no murmurs or gallops appreciated, no rubs. Abdomen: Soft, +BS, NT/ND. Extremities: No edema. Neuro: No nerves II through XII grossly intact, no focalizing motor deficits. Objective Objective Clinical Data: Abnormal lab results 06/29/18 06/30/18 06/30/18 Range/Units 23:25 06:30 06:30 WBC 4.34 L (4.4-10.8) k/cumm RBC 3.52 L (4.00-5.20) m/cumm Hgb 11.1 L (12.0-15.5) g/dL Hct 34.6 L (36.0-46.0) % MCV 98.3 H (80-95) fL MPV 11.6 H (8.0-11.0) fL Total Protein 6.2 L (6.4-8.2) g/dL Albumin 3.2 L (3.4-5.0) g/dL LDL Cholesterol Direct 118 H (<100) mg/dL TSH 3.86 H (0.358-3.74) uIU/mL Vital Signs Temperature 36.3 C L 06/30/18 11:00 Temperature Source Tympanic 06/30/18 11:00 Pulse 67 06/30/18 11:00 Pulse Rhythm Irregular 06/30/18 08:00 Pulse 70 06/29/18 17:10 Respiratory Rate 18 06/30/18 11:00 Respiratory Effort 06/30/18 08:00 Respiratory Depth Normal 06/30/18 08:00 Respiratory Pattern Normal 06/30/18 08:00 Blood Pressure 123/75 06/30/18 11:00 Blood Pressure Mean 73 06/29/18 17:00 Blood Pressure Position Supine 06/29/18 13:31 Pulse Oximetry 97 06/30/18 11:00 Oxygen Delivery Method Room Air 06/30/18 11:00 Oxygen Flow Rate 0 06/30/18 11:00 Pain Level 0 06/29/18 19:35 Intake & Output 06/29/18 06/30/18 06/30/18 23:59 11:59 23:59 Intake Total 1000 / 1000 750 / 750 500 / 500 Output Total 400 / 400 550 / 550 Balance 600 / 600 200 / 200 500 / 500 Weight 72.575 kg 72.5 kg Intake: IV 1000 / 1000 Oral 750 / 750 500 / 500 Output: Urine 400 / 400 550 / 550 Other: Urine Color Yellow Yellow Urine Appearance Clear Clear Voiding Methods Toilet Toilet Laboratory Results WBC 4.34 k/cumm (4.4-10.8) L 06/30/18 06:30 RBC 3.52 m/cumm (4.00-5.20) L 06/30/18 06:30 Hgb 11.1 g/dL (12.0-15.5) L 06/30/18 06:30 Hct 34.6 % (36.0-46.0) L 06/30/18 06:30 MCV 98.3 fL (80-95) H 06/30/18 06:30 MCH 31.5 pg (27.0-33.0) 06/30/18 06:30 MCHC 32.1 g/dL (32.0-36.0) 06/30/18 06:30 RDW 12.7 % (11.7-14.6) 06/30/18 06:30 Plt Count 140 x1000/uL (130-400) 06/30/18 06:30 MPV 11.6 fL (8.0-11.0) H 06/30/18 06:30 Immature Gran % 0.5 06/29/18 13:45 Neutrophils % 70.9 06/29/18 13:45 Lymphocytes % 16.4 06/29/18 13:45 Monocytes % 9.8 06/29/18 13:45 Eosinophils % 1.9 06/29/18 13:45 Basophils % 0.5 06/29/18 13:45 Absolute Neutrophils 4.10 k/cumm (1.2-6.7) 06/29/18 13:45 Absolute Lymphocytes 0.95 k/cumm (1.2-3.4) L 06/29/18 13:45 Absolute Monocytes 0.57 k/cumm (0.11-0.7) 06/29/18 13:45 Absolute Eosinophils 0.11 k/cumm (0.0-0.7) 06/29/18 13:45 Absolute Basophils 0.03 k/cumm (0.0-0.2) 06/29/18 13:45 PT 10.4 sec (9.3-10.8) 06/29/18 13:45 INR 1.1 (1.0-3.5) 06/29/18 13:45 Sodium 141 mmol/L (136-145) 09/24/18 06:30 Potassium 3.8 mmol/L (3.5-5.1) 06/30/18 06:30 Chloride 104 mmol/L (98-107) 06/30/18 06:30 Carbon Dioxide 26.9 mmol/L (21.0-32.0) 06/30/18 06:30 Anion Gap 10.1 mmol/L (3-11) 06/30/18 06:30 BUN 17 mg/dL (7-18) 06/30/18 06:30 Creatinine 0.98 mg/dL (0.55-1.02) 06/30/18 06:30 Estimated GFR/1.73 m2 55.03 (mL/min/1.73m2) 06/30/18 06:30 Glucose 90 mg/dL (70-100) 06/30/18 06:30 Calcium 8.5 mg/dL (8.5-10.1) 06/30/18 06:30 Magnesium 2.5 mg/dL (1.8-2.4) H 06/29/18 13:45 Total Bilirubin 0.2 mg/dL (0.2-1.0) 06/30/18 06:30 AST 18 U/L (15-37) 06/30/18 06:30 ALT 19 U/L (12-78) 06/30/18 06:30 Alkaline Phosphatase 106 U/L (46-116) 06/30/18 06:30 Troponin I < 0.02 ng/mL (0.00-0.06) 06/30/18 03:10 Total Protein 6.2 g/dL (6.4-8.2) L 06/30/18 06:30 Albumin 3.2 g/dL (3.4-5.0) L 06/30/18 06:30 Triglycerides 91 mg/dL (30-150) 06/30/18 06:30 Total Cholesterol 186 mg/dL (50-200) 06/30/18 06:30 LDL Cholesterol Direct 118 mg/dL (<100) H 06/30/18 06:30 HDL Cholesterol 56 mg/dL (40-60) 06/30/18 06:30 TSH 3.86 uIU/mL (0.358-3.74) H 06/29/18 23:25 Free T4 0.91 ng/dL (0.76-1.46) 06/29/18 23:25 Urine Color Yellow (Yellow) 06/29/18 14:37 Urine Clarity Clear 06/29/18 14:37 Urine pH 8.0 (5-8) 06/29/18 14:37 Ur Specific [place] 1.015 (1.005-1.025) 06/29/18 14:37 Urine Protein Negative mg/dL (Negative) 06/29/18 14:37 Urine Ketones Negative mg/dL (Negative) 06/29/18 14:37 Urine Blood Trace-intact (Negative) H 06/29/18 14:37 Urine Nitrite Negative (Negative) 06/29/18 14:37 Urine Bilirubin Negative (Negative) 06/29/18 14:37 Urine Urobilinogen 0.2 EU/dL (Up TO 0.2) 06/29/18 14:37 Ur Leukocyte Esterase Negative (Negative) 06/29/18 14:37 Urine RBC 0-2 (0-2) 06/29/18 14:37 Urine WBC Negative HPF (0-5) 06/29/18 14:37 Ur Epithelial Cells Rare HPF (Negative) 06/29/18 14:37 Urine Crystals Negative HPF (Negative) 06/29/18 14:37 Urine Bacteria Negative HPF (Negative) 06/29/18 14:37 Urine Casts Negative LPF (Negative) 06/29/18 14:37 Urine Mucus Negative (Negative) 06/29/18 14:37 Ur Culture Indicated? No 06/29/18 14:37 Urine Glucose Negative mg/dL (Negative) 06/29/18 14:37 Objective Narrative Objective Narrative: Exam(s) a MRI:MR brain wo/w SYMPTOMS/DIAGNOSIS: RIGHT OCCIPITAL HYPERDENSITY, DIZZINESS MRI OF THE BRAIN: Pre and post contrast examination. Comparison examination is 07/15/13. Comparison CT scan is 06/29/18. The diffusion weighted images show no evidence of an acute infarct. The ventricles and sulci are consistent with the patient' s age. Areas of T2 hyperintensity are present in the white matter consistent with small vessel ischemic disease. No acute midline shift or mass effect is identified. No intracranial hemorrhage is present. There is again seen a nonenhancing area of nodularity along the lateral aspect of the right occipital horn. It is unchanged dating back to 2012. No enhancement is seen. 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 No other abnormal enhancement is seen. There is a flow void in the [place]. The pituitary gland appears grossly unremarkable. The visualized paranasal sinuses show no acute abnormality. The orbits and retroorbital soft tissues are unremarkable. IMPRESSION: 1. No evidence of an acute infarct or intracranial hemorrhage. 2. Age-related cerebral atrophy and small vessel ischemic disease. 3. 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 Exam(s) a US:US carotid SYMPTOM/DIAGNOSIS: POSSIBLE CVA, DIZZY, VOMITING CAROTID ULTRASOUND: Routine examination was performed. Calcific plaque is seen in the distal common carotid arteries and carotid bulbs bilaterally. On the right, no hemodynamically significant velocity elevations are seen. The right vertebral artery is antegrade. On the left, there is no hemodynamically significant velocity elevation present. The left vertebral artery is antegrade. IMPRESSION: No evidence of hemodynamically significant velocity elevations. The findings are consistent with less than 50% narrowing of the internal carotid arteries bilaterally.
[2018-06-30] MEDS: Normal Saline Flush 10 ML SYR IVP (18:19)
[2018-07-01 02:59] VITALS: BP 109/68; PULSE 75; RESP 16; TEMP 36.5; O2SAT 94
[2018-07-01] MEDS: Levothyroxine 25 MCG TAB PO (06:45)
[2018-07-01 07:20] VITALS: PULSE 76
[2018-07-01 07:40] VITALS: O2SAT 97
[2018-07-01 07:49] LABS: Abs Immature Grans 0.02 k/cumm (0.0-0.09); Absolute Basophil Count 0.02 k/cumm (0.0-0.2); Absolute Eosinophil Count 0.08 k/cumm (0.0-0.7); Absolute Lymphocyte Count 1.29 k/cumm (1.2-3.4); Absolute Monocyte Count 0.53 k/cumm (0.11-0.7); Absolute Neutrophil Count 3.84 k/cumm (1.2-6.7); Basophils % 0.3; Eosinophils % 1.4; HCT 39.2 % (36.0-46.0); HGB 12.4 g/dL (12.0-15.5); Immature Grans % 0.3; Lymphocytes % 22.3; Mean Corp. HGB Concentration 31.6 g/dL (32.0-36.0); Mean Corpuscular Hemoglobin 31.2 pg (27.0-33.0); Mean Corpuscular Volume 98.5 fL (80-95); Mean Platelet Volume 11.3 fL (8.0-11.0); Monocytes % 9.2; Neutrophils % 66.5; Platelet Count 157 x1000/uL (130-400); RBC 3.98 m/cumm (4.00-5.20); RBC Distribution Width 12.8 % (11.7-14.6); White Blood Cell Count 5.78 k/cumm (4.4-10.8)
[2018-07-01 07:54] LABS: Anion Gap 8.2 mmol/L (3-11); BUN 20 mg/dL (7-18); CO2 28.8 mmol/L (21.0-32.0); CREATININE 0.96 mg/dL (0.55-1.02); Calcium 8.8 mg/dL (8.5-10.1); Chloride 101 mmol/L (98-107); Estimated GFR 56.36 (mL/min/1.73m2); Glucose 112 mg/dL (70-100); Sodium 138 mmol/L (136-145)
[2018-07-01 08:12] VITALS: BP 106/82; PULSE 76; RESP 18; TEMP 36; O2SAT 97
--- NOTE | 2018-07-01 11:00 | ETT_ITS ---
*[facility]* *[facility]* [address] [place] [address] Stress Electrocardiography Abdirizak protocol Date of study: 07/01/2018 (Report amended ) *PATIENT PRESENTATION* Height: 166.4cm (65.5in) Blood Pressure: Weight: 72.7kg (160lb) BSA: 1.85m^2 Ordering physician: Dung Mullins Impressions: Normal study after maximal exercise. Summary: 1. Stress ECG conclusions: The stress ECG is negative. Gutierrez treadmill score: 6. This score predicts a low risk of cardiac events. 2. Stress: The target heart rate was achieved. Indication: (R42). History: REASON FOR VISIT: THIS IS AN INPATIENT, HERE FOR EPISODES OF EXERCISE INDUCED DIZZYNESS, NAUSEA AND DIAPHORESIS. PT STATES THIS OCCURED WHILE SHE WAS MOPPING HER FLOOR AT HOME. PT REPORTS SHE TAKES PROPRANOLOL FOR A CHRONIC TREMOR. SHE STATES HER TREMOR HAS BEEN PRESENT FOR ABOUT 3 YEARS BUT SHE HAS FELT HER ENTIRE BODY TO BE TREMULOUS FOR ABOUT 6 MONTHS. SHE ALSO REPORTS INTERMITTENT EPISODES OF CHEST PRESSURE FOR THIS PAST 6 MONTHS ALSO, THEY HAVE OCCURED WITH ACTIVITY AND COMPLETE REST. PT DENIES CHEST PAIN OR PRESSURE UPON ARRIVAL TO STRESS LAB THIS AM. Risk factors: Family history of coronary artery disease. Dyslipidemia. Cholesterol: 186mg/dl. HDL: 56mg/dl. LDL: 118mg/dl. Triglycerides: 91mg/dl. ALLERGIES: NO KNOWN ALLERGIES. MEDICATIONS: ASPIRIN 81 MG DAILY. BUPROPION HCL 150 MG TID. FLUTICASONE 1 NASAL SPRAY TWICE A DAY. LEVOTHYROXINE 25 MCG DAILY. MVI 1 DAILY. OMEPRAZOLE 20 MG DAILY. PROPRANOLOL 10 MG TWICE A DAY. Protocol: Abdirizak protocol. Baseline ECG: SINUS RHYTHM. HR 71 BPM. ABNORMAL R-WAVE PROGRESSION, EARLY TRANSITION. Stress protocol: + +---+ + !Stage !HR !BP (mmHg) ! + +---+ + !Baseline supine !71 !110/62 (78) ! + +---+ + !Baseline standing !88 !132/70 (91) ! + +---+ + !Stage I; 1.7mph, 10degrees; 3 min !133!152/74 (100)! + +---+ + !Stage II; 2.5mph, 12degrees; 3 min!141!178/64 (102)! + +---+ + !Peak stress !146! ! + +---+ + !Immediate post stress !129!164/78 (107)! + +---+ + !Recovery; 3 min !100!156/74 (101)! + +---+ + !Recovery; 6 min !88 !130/68 (89) ! + +---+ + * Stress results: Maximal heart rate during stress was 146bpm (102% of maximal predicted heart rate). The maximal predicted heart rate was 143bpm. The target heart rate was achieved. The rate-pressure product for the peak heart rate and blood pressure was 79339qg Hg/min. Stress ECG: TREADMILL PORTION OF STRESS TEST ENDED IN 6 MINUTES DUE TO PATIENT FATIGUE. NORMAL HEART RATE AND BLOOD PRESSURE RESPONSE TO EXERCISE MAX HR = 146 % OF TARGET = 102 FREQUENT UNIFOCAL PVCs. INTERMITTENT BIGEMINAL PATTERN DURING IMMEDIATE RECOVERY. APPROXIMATE METS ACHIEVED = 7.05 NO ANGINA NO SIGNIFICANT [address] SEGMENT CHANGES. ABOVE AVERAGE FUNCTIONAL CAPACITY FOR EXERCISE. The stress ECG is negative. Gutierrez treadmill score: 6. This score predicts a low risk of cardiac events. Study data: Darius Alberto MD supervised and was readily available during the procedure. This study was interpreted by [facility]. Study status: Routine. Consent: The risks, benefits, and alternatives to the procedure were explained to the patient and informed consent was obtained. Procedure: Initial setup. A baseline ECG was recorded. Surface ECG leads and manual cuff blood pressure measurements were monitored. Heart sounds: Normal. Lung sounds: Normal. Treadmill exercise testing was performed using the Abdirizak protocol. Study completion: The patient tolerated the procedure well and was discharged from the lab. Discharge: The patient left the laboratory in stable condition. Birthdate: Patient birthdate: 1940. Sex: Gender: female. Study date: Study date: 07/01/2018. Study time: 11:00 AM. Electronically signed by Jitendra Francisco 08/13/2018 10:04
[2018-07-01] MEDS: Multivitamin TAB 1 TAB PO (11:24)
[2018-07-01] MEDS: Omeprazole 20 MG CAPCR PO (11:25)
[2018-07-01] MEDS: Aspirin 325 MG TAB PO (11:25)
[2018-07-01] MEDS: buPROPion-CR 150 MG TABCR PO ×2 (11:25→14:00)
[2018-07-01] MEDS: Propranolol 10 MG TAB PO (11:25)
[2018-07-01 11:33] VITALS: BP 113/86; PULSE 93; RESP 18; TEMP 36; O2SAT 96
--- NOTE | 2018-07-01 15:27 | PDOC.CMPRO ---
- If Service Date Differs Date of service: 07/01/18 Time of Service: 15:27 Care Management Progress Note S/O: Patient presented at interdisciplinary rounds. Laya is sitting in her recliner following a stress test, with her Ganesh at bedside. She is engaged in conversation and reports that she is feeling well and ready to return home. Laya will discharge pending testing results and will return home with no services. A: 78 year old female admitted with dizziness and an abnormal CT brain scan. P: Laya will discharge home when medically ready per MD. Anticipate patient will discharge with no services and follow up with her PCP. Laya will transport via private vehicle with her , Ganesh. will continue to offer support to patient, family and care team regarding discharge planning and disposition.
--- NOTE | 2018-07-01 15:42 | DSE_ITS ---
Date of service: 07/01/18 Time of Service: 15:34 DS: Diagnosis Discharge Diagnosis (1) Episode of dizziness: Status: Acute (2) Occipital mass: Status: Acute (3) Constipation: Status: Chronic (4) Chest discomfort: Status: Acute (5) Varicose veins of lower extremity: Status: Acute (6) Osteoporosis: Status: Acute (7) Hypothyroidism: Status: Acute (8) Hyperlipidemia: Status: Acute (9) Gastroesophageal reflux disease without esophagitis: Status: Acute (10) Urinary, incontinence, stress female: Status: Acute (11) Essential hypertension: Status: Acute (12) Depressive disorder: Status: Acute (13) Carotid artery stenosis: Status: Acute (14) Atrophic vaginitis: Status: Acute (15) ASCUS with positive high risk HPV cervical: Status: Acute Discharge Plan Disposition Patient Disposition: HOME Condition: Good Discharge Details Reason For Visit: DIZZINESS, ABN CT SCAN OF BRAIN Admit Date/Time: 06/29/18 18:27 Admit Provider: Julian Cfofman Attending Provider: Julian Coffman Primary Care Provider: Karin [facility] Hospital Course: Very pleasant 78-year-old woman with past medical history significant for hypertension, dyslipidemia, and hypothyroidism who was admitted from [facility] ED on 06/29/18 with reported dizziness with exertion. Mrs. Arevalo reported symptoms of flushing with dizziness, tremors, and dyspnea which had been ongoing for approximately one month. She stateed that these symptoms were all exertional, and usually occurred when she is doing housework. 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 She denies any chest pain or palpitations with these episodes, but on the day of her admission she did have diffuse diaphoresis with accompanied nausea and vomiting. Initial evaluation in the emergency room included a CT scan of the head that showed a potential lesion in the right occipital area, and the patient was admitted for further work-up for potential CVA. However, in comparison to old images it appears that the patient has had these findings dating back minimally to 2012. Regardless, she underwent imaging with an MRI which ruled out any acute pathology including stroke, and noted stability in the nonenhancing occipital nodule. Given her history of carotid artery disease she also underwent a carotid ultrasound which showed no evidence of hemodynamically significant disease. Given that her symptoms are exertional an ETT was ordered. She underwent a stress ECG, her Gutierrez treadmill score was 6, predicting a low risk of cardiac events, the target heart rate was achieved. She was monitored on telemetry during her hospitalization, she was noted to be in normal sinus rhythm with rates in the 70s. On the day of discharge, she was not experiencing any of the symptoms that originally brought her in. She is discharged home. She should follow up with her PCP within one week. She is advised to check her blood pressure if her symptoms recur. She does have a blood pressure cuff at home. Home Meds and New Rx's Prescriptions: Continue bupropion HCl [Wellbutrin SR] 150 mg tablet extended release 12 hr 150 mg PO TID Qty: 180 RF: 0 aspirin [Aspirin Low-Strength] 81 MG tablet,chewable 81 mg PO DAILY RF: 0 multivitamin [Daily Vitamin] 1 EACH tablet 1 ea PO DAILY RF: 0 fluticasone 16 GM spray,suspension 1 spray NS BID Qty: 1 RF: 0 propranolol 10 MG tablet 10 mg PO BID Qty: 180 RF: 4 omeprazole 20 MG capsule,delayed release(DR/EC) 20 mg PO DAILY Qty: 90 RF: 4 levothyroxine 25 MCG tablet 25 mcg PO DAILY Qty: 90 RF: 3 simvastatin 10 MG tablet 10 mg PO DAILY Qty: 90 RF: 3 Discharge Instructions Instructions: Dizziness (GEN) Additional Instructions: Call your PCP and make appointment to be seen in one week. We were not able to make the appointment prior to your discharge. Your stress test was normal. If you your symptoms recur, check your blood pressure at that time. Stand Alone Forms: Nursing Discharge Form Referrals: Karin Miller NP [Primary Care Provider] - (Please call your PCP office to schedule a follow up appointment for within one week. [phone]) Activity:: Activity as Tolerated Equipment/Supplies:: No Equipment Needed Discharge Orders Discharge Orders: Discharge Order (Routine); Ordered 07/01/18 Ordered By: Hodan Shaikh DS: Data Vitals/I&O Vitals and I&O: Vital Signs Temperature 36 C L 07/01/18 11:33 Temperature Source Tympanic 07/01/18 11:33 Pulse 93 H 07/01/18 11:33 Pulse Rhythm Regular 07/01/18 09:06 Pulse 70 06/29/18 17:10 Respiratory Rate 18 07/01/18 11:33 Respiratory Effort Non-Labored 07/01/18 09:06 Respiratory Depth Normal 07/01/18 09:06 Respiratory Pattern Normal 07/01/18 09:06 Blood Pressure 113/86 07/01/18 11:33 Blood Pressure Mean 73 06/29/18 17:00 Blood Pressure Position Supine 06/29/18 13:31 Pulse Oximetry 96 07/01/18 11:33 Oxygen Delivery Method Room Air 07/01/18 11:33 Oxygen Flow Rate 0 07/01/18 11:33 Pain Level 0 07/01/18 11:33 Intake & Output 06/30/18 07/01/18 07/01/18 23:59 11:59 23:59 Intake Total 510 / 510 400 / 400 Output Total 800 / 800 700 / 700 Balance -290 / -290 -300 / -300 Weight 68.7 kg Intake: IV Oral 500 / 500 400 / 400 Output: Urine 800 / 800 700 / 700 Other: Urine Color Yellow Yellow Urine Appearance Clear Clear Urine Odor None Comment missed hat Voiding Methods Toilet Toilet Completed studies during hospitalization [Text1]: STRESS TEST 07/01/18: Dr. Alberto Impressions: Normal study after maximal exercise. Summary: 1. Stress ECG conclusions: The stress ECG is negative. Gutierrez treadmill score: 6. This score predicts a low risk of cardiac events. 2. Stress: The target heart rate was achieved. 06/30/18: MRI OF THE BRAIN: Pre and post contrast examination. Comparison examination is 07/15/13. Comparison CT scan is 06/29/18. The diffusion weighted images show no evidence of an acute infarct. The ventricles and sulci are consistent with the patient' s age. Areas of T2 hyperintensity are present in the white matter consistent with small vessel ischemic disease. No acute midline shift or mass effect is identified. No intracranial hemorrhage is present. There is again seen a nonenhancing area of nodularity along the lateral aspect of the right occipital horn. It is unchanged dating back to 2012. No enhancement is seen. 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 No other abnormal enhancement is seen. There is a flow void in the [place] of [place]. The pituitary gland appears grossly unremarkable. The visualized paranasal sinuses show no acute abnormality. The orbits and retroorbital soft tissues are unremarkable. IMPRESSION: 1. No evidence of an acute infarct or intracranial hemorrhage. 2. Age-related cerebral atrophy and small vessel ischemic disease. 3. 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 CAROTID ULTRASOUND: Routine examination was performed. Calcific plaque is seen in the distal common carotid arteries and carotid bulbs bilaterally. On the right, no hemodynamically significant velocity elevations are seen. The right vertebral artery is antegrade. On the left, there is no hemodynamically significant velocity elevation present. The left vertebral artery is antegrade. IMPRESSION: No evidence of hemodynamically significant velocity elevations. The findings are consistent with less than 50% narrowing of the internal carotid arteries bilaterally. CTA HEAD: CT angiography was performed with multi slice acquisition and multi planar and 3D reconstruction. The internal carotid arteries show no significant stenosis, occlusion or aneurysm. The anterior cerebral arteries are unremarkable without significant stenosis, occlusion or aneurysm. The middle cerebral arteries are unremarkable without significant stenosis, occlusion or aneurysm. The posterior cerebral arteries are unremarkable without significant stenosis, occlusion or aneurysm. There is minimal calcific plaque seen in the intracranial portion of the vertebral arteries bilaterally but no significant stenosis, occlusion or aneurysm is present. The basilar artery shows no significant stenosis, occlusion or aneurysm. Note is made of the tiny subependymal nodular density at the lateral aspect of the right occipital horn. There is no abnormal enhancement noted. IMPRESSION: No acute abnormality. CTA NECK: CT angiography was performed with multi slice acquisition and multi planar and 3D reconstruction. Routine examination was performed. There is minimal calcific plaque seen in the common carotid arteries bilaterally but no significant stenosis, occlusion or aneurysm is seen. No dissection is identified. The external carotid arteries are unremarkable without stenosis, occlusion or aneurysm. No dissection is seen. The internal carotid arteries show calcific plaque within the proximal portions bilaterally. No significant stenosis, occlusion, dissection or aneurysm is present. The vertebral arteries show mild calcific plaque on the right. No significant stenosis, occlusion, dissection or aneurysm is present. Degenerative changes are seen in the cervical spine. The lung apices appear clear. IMPRESSION: No acute abnormality. 06/29/18: CHEST X-RAY: FRONTAL AND LATERAL CHEST: Comparison is made with 03/12/17. Heart size and pulmonary vasculature are within normal limits. The lungs are clear. No effusions or pneumothoraces are identified. There are old right rib fractures. There is underlying COPD. The bones are intact. IMPRESSION: No acute pulmonary process. NONCONTRAST HEAD CT: Comparison is made with CT scan of 02/15/12. Comparison MRI is 07/15/13. The ventricles and sulci are consistent with the patient's age. The ventricles are intact. The basilar cisterns are patent. No acute intracranial hemorrhage, infarct or mass effect is identified. 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 There are two small subependymal nodules again noted , one in the lateral aspect of the occipital horn of the right ventricular system measuring 0.8 cm. maximally. There is a second subependymal nodule seen of the lateral aspect of the left lateral ventricle measuring 0.4 cm. maximally. These were present on prior examinations. The visualized paranasal sinuses are clear. The mastoid air cells are well pneumatized. The calvarium is intact. IMPRESSION: 1. No acute abnormality intracranially. 2. 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 If there is further imaging warranted, an MRI without and with contrast should be considered. Pending studies at discharge: COLONOSCOPY (05/06/06) WBC 5.78 k/cumm (4.4-10.8) D 07/01/18 07:28 RBC 3.98 m/cumm (4.00-5.20) L 07/01/18 07:28 Hgb 12.4 g/dL (12.0-15.5) 07/01/18 07:28 Hct 39.2 % (36.0-46.0) 07/01/18 07:28 MCV 98.5 fL (80-95) H 07/01/18 07:28 MCH 31.2 pg (27.0-33.0) 07/01/18 07:28 MCHC 31.6 g/dL (32.0-36.0) L 07/01/18 07:28 RDW 12.8 % (11.7-14.6) 07/01/18 07:28 Plt Count 157 x1000/uL (130-400) 07/01/18 07:28 MPV 11.3 fL (8.0-11.0) H 07/01/18 07:28 Immature Gran % 0.3 07/01/18 07:28 Neutrophils % 66.5 07/01/18 07:28 Lymphocytes % 22.3 07/01/18 07:28 Monocytes % 9.2 07/01/18 07:28 Eosinophils % 1.4 07/01/18 07:28 Basophils % 0.3 07/01/18 07:28 Absolute Neutrophils 3.84 k/cumm (1.2-6.7) 07/01/18 07:28 Absolute Lymphocytes 1.29 k/cumm (1.2-3.4) 07/01/18 07: Absolute Monocytes 0.53 k/cumm (0.11-0.7) 07/01/18 07: Absolute Eosinophils 0.08 k/cumm (0.0-0.7) 07/01/18 07: Absolute Basophils 0.02 k/cumm (0.0-0.2) 07/01/18 07: PT 10.4 sec (9.3-10.8) 06/29/18 13:45 INR 1.1 (1.0-3.5) 06/29/18 13:45 Sodium 138 mmol/L (136-145) 07/01/18 07:28 Potassium 4.0 mmol/L (3.5-5.1) 07/01/18 07:28 Chloride 101 mmol/L (98-107) 07/01/18 07:28 Carbon Dioxide 28.8 mmol/L (21.0-32.0) 07/01/18 07:28 Anion Gap 8.2 mmol/L (3-11) 07/01/18 07:28 BUN 20 mg/dL (7-18) H 07/01/18 07:28 Creatinine 0.96 mg/dL (0.55-1.02) 07/01/18 07:28 Estimated GFR/1.73 m2 56.36 (mL/min/1.73m2) 07/01/18 07:28 Glucose 112 mg/dL (70-100) H 07/01/18 07:28 Calcium 8.8 mg/dL (8.5-10.1) 07/01/18 07:28 Magnesium 2.5 mg/dL (1.8-2.4) H 06/29/18 13:45 Total Bilirubin 0.2 mg/dL (0.2-1.0) 06/30/18 06:30 AST 18 U/L (15-37) 06/30/18 06:30 ALT 19 U/L (12-78) 06/30/18 06:30 Alkaline Phosphatase 106 U/L (46-116) 06/30/18 06:30 Troponin I < 0.02 ng/mL (0.00-0.06) 06/30/18 03:10 Total Protein 6.2 g/dL (6.4-8.2) L 06/30/18 06:30 Albumin 3.2 g/dL (3.4-5.0) L 06/30/18 06:30 Triglycerides 91 mg/dL (30-150) 06/30/18 06:30 Total Cholesterol 186 mg/dL (50-200) 06/30/18 06:30 LDL Cholesterol Direct 118 mg/dL (<100) H 06/30/18 06:30 HDL Cholesterol 56 mg/dL (40-60) 06/30/18 06:30 TSH 3.86 uIU/mL (0.358-3.74) H 06/29/18 23:25 Free T4 0.91 ng/dL (0.76-1.46) 06/29/18 23:25 Urine Color Yellow (Yellow) 06/29/18 14:37 Urine Clarity Clear 06/29/18 14:37 Urine pH 8.0 (5-8) 06/29/18 14:37 Ur Specific [place] 1.015 (1.005-1.025) 06/29/18 14:37 Urine Protein Negative mg/dL (Negative) 06/29/18 14:37 Urine Ketones Negative mg/dL (Negative) 06/29/18 14:37 Urine Blood Trace-intact (Negative) H 06/29/18 14:37 Urine Nitrite Negative (Negative) 06/29/18 14:37 Urine Bilirubin Negative (Negative) 06/29/18 14:37 Urine Urobilinogen 0.2 EU/dL (Up TO 0.2) 06/29/18 14:37 Ur Leukocyte Esterase Negative (Negative) 06/29/18 14:37 Urine RBC 0-2 (0-2) 06/29/18 14:37 Urine WBC Negative HPF (0-5) 06/29/18 14:37 Ur Epithelial Cells Rare HPF (Negative) 06/29/18 14:37 Urine Crystals Negative HPF (Negative) 06/29/18 14:37 Urine Bacteria Negative HPF (Negative) 06/29/18 14:37 Urine Casts Negative LPF (Negative) 06/29/18 14:37 Urine Mucus Negative (Negative) 06/29/18 14:37 Ur Culture Indicated? No 06/29/18 14:37 Urine Glucose Negative mg/dL (Negative) 06/29/18 14:37 Labs on day of discharge: Labs from last 24 hours 07/01/18 07/01/18 07:28 07:28 WBC 5.78 D RBC 3.98 L Hgb 12.4 Hct 39.2 MCV 98.5 H MCH 31.2 MCHC 31.6 L RDW 12.8 Plt Count 157 MPV 11.3 H Immature Gran % 0.3 Neutrophils % 66.5 Lymphocytes % 22.3 Monocytes % 9.2 Eosinophils % 1.4 Basophils % 0.3 Absolute Neutrophils 3.84 Absolute Lymphocytes 1.29 Absolute Monocytes 0.53 Absolute Eosinophils 0.08 Absolute Basophils 0.02 Sodium 138 Potassium 4.0 Chloride 101 Carbon Dioxide 28.8 Anion Gap 8.2 BUN 20 H Creatinine 0.96 Estimated GFR/1.73 m2 56.36 Glucose 112 H Calcium 8.8
--- NOTE | 2018-07-01 16:31 | PDOC.CMDIS ---
- If Service Date Differs Date of service: 07/01/18 Time of Service: 16:31 LACE Index Scoring Tool - Questions: Length of Stay (in days): 3 Acuity (Admit via E.D.?): Yes E.D. Visits: 1 - Answers: Total Score: 7 Risk of Readmission: Low Risk Care Management Discharge Reason for Hospitalization: Dizziness, abnormal brain CT scan. Discharge Plan: Laya will discharge home when medically ready per MD. Anticipate patient will discharge with no services and follow up with her PCP. Laya will transport via private vehicle with Ganes[facility]. Patient/Family Education Needs: Discharge education, any limitations and follow up plan of care. Ask Me Three discussion.
[2018-07-01 16:47] VITALS: PULSE 80
== END 2018-07-01 16:45 | disposition home or self-care (01) ==
LOC: ER 19:38 → MS 19:51
PROVIDERS: Admitting Provider Family Medicine; Emergency Provider Emergency Medicine; Visit Provider Internal Medicine
DX: R42 Dizziness and giddiness (principal); G93.89 Other specified disorders of brain; I65.23 Occlusion and stenosis of bilateral carotid arteries; I10 Essential (primary) hypertension; G25.0 Essential tremor; E78.5 Hyperlipidemia, unspecified; E03.9 Hypothyroidism, unspecified
CPT/HCPCS: 36415; 70496; 70498; 70553; 80048; 80053; 80061; 83721; 85027; 93005; 93016; 93018; 96361; 96374; 99222; 99232; 99239; 99285; 70450; 71046; 81003; 81015; 83735; 84439; 84443; 84484; 85025; 85610; 93010; 93017; 93880; 99217; 99219; 99225; G0378; J2405; J3490

== ENCOUNTER 2018-07-22 01:18 | Outpatient (CLI) | payer MEDICARE, SELFPAY ==
--- NOTE | 2018-07-22 12:30 | DI.MAMMO_ITS ---
SYMPTOMS/DIAGNOSIS: BREAST CANCER SCREENING MAMMOGRAMS: Mammograms were interpreted according to the usual protocol including computer analysis with CAD system, tomosynthesis and C view imaging. The breast tissue is of moderate radiodensity. There is no evidence of a mass. There are no suspicious calcifications and there has been no significant interval change when compared with prior images. SUMMARY: No evidence of malignancy, category 1. Yearly screening mammography is recommended. Breast density category B. MQSA ASSESSMENT OF FINDINGS: Negative. Category 1. Patient will receive a letter notifying them of these results. BI-RADS category B. There are scattered areas of fibroglandular density.
== END 2018-07-22 01:38 ==
DX: Z12.31 Encounter for screening mammogram for malignant neoplasm of breast (principal)
CPT/HCPCS: 77063; 77067

== ENCOUNTER 2018-08-12 02:20 | Outpatient (CLI) | payer MEDICARE, SELFPAY | END 2018-08-12 02:40 | DX: E78.5 Hyperlipidemia, unspecified (principal) | CPT/HCPCS: 36415; 84443 ==

== ENCOUNTER 2018-09-04 14:24 | Outpatient (REF) | payer MEDICARE, SELFPAY ==
--- NOTE | 2018-09-04 13:20 | PAPFT_PTH ---
PATIENT: Laya Arevalo LOC: [facility] U#:[id number] AGE/SX: 78/F ROOM: RE09/04/[address]: Mable Flores : 1940 BED: DIS: 09/04/2018 SPEC #: [id number] RECD: 09/04/18 18:25 STATUS: CASE RECecy #: [id number] FLACA: 09/04/18 13:[address]: Mable Flores DEPT: [facility] Cytology RECD BY: Yara Holt ENTERED: 09/04/18 18:25 SP TYPE: PAPFT OTHR DR: Karin Miller APRN Tissues: 1 - CX/ENDOCX FOR PAP SMEARS Procedures: PAP THIN PREP/[facility] Screening HPV DNA PROBE Comments: [id number]
== END 2018-09-04 14:44 ==
LOC: LBN 14:24
PROVIDERS: Visit Provider Obstetrics & Gynecology Gynecology
DX: Z12.4 Encounter for screening for malignant neoplasm of cervix (principal); Z11.51 Encounter for screening for human papillomavirus (HPV)
CPT/HCPCS: 88142; 87624

== ENCOUNTER 2018-09-29 13:04 | Outpatient (REF) | payer MEDICARE, SELFPAY ==
[2018-09-29 14:26] LABS: Bilirubin Negative (Negative); Blood Moderate (Negative); Clarity Sl Cloudy; Glucose Negative (Negative); Ketones Negative (Negative); Leukocyte Esterase Moderate (Negative); Nitrite Negative (Negative); Urobilinogen 0.2 EU/dL (Up TO 0.2); pH 6.5 (5-8)
[2018-09-29 14:42] LABS: Bacteria Moderate HPF (Negative); C & S Indicated? Yes; Epithelial Cells Few HPF (Negative); WBC >50 HPF (0-5)
== END 2018-09-29 13:24 ==
LOC: LBN 13:04
DX: N39.0 Urinary tract infection, site not specified (principal); R10.9 Unspecified abdominal pain
CPT/HCPCS: 87077; 81003; 81015; 87086; 87186

== ENCOUNTER 2019-02-10 11:18 | Outpatient (CLI) | payer MEDICARE, BC, SELFPAY ==
--- NOTE | 2019-02-10 10:00 | DI.RAD_ITS ---
SYMPTOM/DIAGNOSIS: LT SHOULDER PAIN, M25.512 LEFT SHOULDER: Five views. No priors. There are mild hypertrophic changes seen at the acromioclavicular joint. The glenohumeral joint appears well maintained. The bones are intact. The bones appear osteopenic. The soft tissues are unremarkable. IMPRESSION: Mild degenerative changes of the left AC joint.
== END 2019-02-10 11:38 ==
DX: M25.512 Pain in left shoulder (principal); M19.012 Primary osteoarthritis, left shoulder
CPT/HCPCS: 73030

== ENCOUNTER 2019-06-22 01:34 | Outpatient (CLI) | payer MEDICARE, BC, SELFPAY ==
[2019-06-22 12:02] LABS: ALT 19 U/L (14-59); AST 18 U/L (15-37); Albumin 3.7 g/dL (3.4-5.0); Alkaline Phosphatase 110 U/L (46-116); Anion Gap 10.9 mmol/L (3-11); BUN 15 mg/dL (7-18); Bilirubin, Total 0.4 mg/dL (0.2-1.0); CO2 27.1 mmol/L (21.0-32.0); CREATININE 0.85 mg/dL (0.55-1.02); Calcium 9.2 mg/dL (8.5-10.1); Calculated LDL 199 mg/dL; Chloride 101 mmol/L (98-107); Cholesterol 288 mg/dL (50-200); Glucose 100 mg/dL (70-100); HDL Cholesterol 55 mg/dL (40-60); Potassium 4.1 mmol/L (3.5-5.1); Sodium 139 mmol/L (136-145); Total Protein 6.9 g/dL (6.4-8.2); Triglyceride 173 mg/dL (30-150)
== END 2019-06-22 01:54 ==
DX: E78.5 Hyperlipidemia, unspecified (principal); I10 Essential (primary) hypertension; E03.9 Hypothyroidism, unspecified; M81.0 Age-related osteoporosis without current pathological fracture
CPT/HCPCS: 36415; 80053; 80061; 84443

== ENCOUNTER 2019-07-30 00:54 | Outpatient (CLI) | payer MEDICARE, BC, SELFPAY ==
--- NOTE | 2019-07-30 09:54 | DI.MAMMO_ITS ---
EXAM: MAMMO SCREENING CLINICAL HISTORY: screening Z12.39 TECHNIQUE: Mammograms were interpreted according to the usual protocol including computer analysis w [employer] CAD system, tomosynthesis and C-view imaging. FINDINGS: The breasts are of moderate density with asymmetrical distribution of fibroglandular tissue in the br easts. Multiple focal areas of asymmetric density are seen bilaterally. No dominant mass seen. No clumped microcalcification is seen. No significant change in appearance in comparison with examinati ons including July 2018. IMPRESSION: No specific evidence of malignancy at this time. Routine screening examinations are suggested at year ly intervals due to the family history of breast carcinoma. Category 1. Breast density, category B. BI-RADS Cat 1 - Negative. Breast Density - Category B - Scattered areas of fibroglandular density.
== END 2019-07-30 01:14 ==
DX: Z12.31 Encounter for screening mammogram for malignant neoplasm of breast (principal); Z80.3 Family history of malignant neoplasm of breast
CPT/HCPCS: 77063; 77067

== ENCOUNTER 2020-06-21 03:48 | Outpatient (CLI) | payer MEDICARE, BC, SELFPAY ==
[2020-06-21 13:11] LABS: ALT 16 U/L (14-59); AST 18 U/L (15-37); Albumin 3.4 g/dL (3.4-5.0); Alkaline Phosphatase 104 U/L (46-116); Anion Gap 9.3 mmol/L (3-11); BUN 14 mg/dL (7-18); Bilirubin, Total 0.4 mg/dL (0.2-1.0); CO2 26.7 mmol/L (21.0-32.0); CREATININE 0.82 mg/dL (0.55-1.02); Calcium 9.1 mg/dL (8.5-10.1); Chloride 101 mmol/L (98-107); Glucose 104 mg/dL (74-106); Potassium 3.9 mmol/L (3.5-5.1); Sodium 137 mmol/L (136-145); TSH (W/Ref FT4) 2.47 uIU/mL (0.36-3.74); Total Protein 6.6 g/dL (6.4-8.2)
== END 2020-06-21 04:08 ==
DX: E03.9 Hypothyroidism, unspecified (principal); I10 Essential (primary) hypertension; F32.9 Major depressive disorder, single episode, unspecified; F41.9 Anxiety disorder, unspecified; K21.9 Gastro-esophageal reflux disease without esophagitis; G47.00 Insomnia, unspecified
CPT/HCPCS: 36415; 80053; 84443

== ENCOUNTER 2020-06-28 03:15 | Outpatient (CLI) | payer MEDICARE, BC, SELFPAY ==
[2020-06-28 12:57] LABS: Calculated LDL 193 mg/dL (<100); Cholesterol 291 mg/dL (<200); HDL Cholesterol 51 mg/dL (40-60); Triglyceride 237 mg/dL (<150)
== END 2020-06-28 03:35 ==
DX: E78.5 Hyperlipidemia, unspecified (principal)
CPT/HCPCS: 36415; 80061

== ENCOUNTER 2020-08-04 01:25 | Outpatient (CLI) | payer MEDICARE, BC, SELFPAY ==
--- NOTE | 2020-08-04 10:14 | DI.MAMMO_ITS ---
EXAM: MAMMO SCREENING CLINICAL HISTORY: screening,Z12.39 TECHNIQUE: Mammograms were interpreted according to the usual protocol including computer analysis w [employer] CAD system, tomosynthesis and C-view imaging. COMPARISON: FINDINGS: The breasts are of moderate density with fairly symmetrical distribution of fibroglandular tissue. N o dominant mass or clumped microcalcification is identified in either breast. The current examinatio n is compared with prior studies including examination of July 2019 and there has been no gross in terval change in appearance in comparison with the previous examinations. IMPRESSION: No specific evidence of malignancy at this time. Routine screening examinations are suggested at yea rly intervals due to the family history of breast carcinoma. BI-RADS Category 1 - Negative Breast Density - Category B - Scattered areas of fibroglandular density
== END 2020-08-04 01:45 ==
DX: Z12.31 Encounter for screening mammogram for malignant neoplasm of breast (principal); Z80.3 Family history of malignant neoplasm of breast
CPT/HCPCS: 77063; 77067

== ENCOUNTER 2021-04-21 03:03 | Outpatient (CLI) | payer MEDICARE, BC, SELFPAY ==
--- NOTE | 2021-04-21 07:30 | DI.RAD_ITS ---
Exam(s) XR KNEE RT 3V AP,LAT,BENEDICTO EXAM: XR KNEE RT 3V AP,LAT,BENEDICTO CLINICAL HISTORY: Right knee pain mild effusion without known injuRY,M25.561. TECHNIQUE: 2D digital imaging was performed. COMPARISON: No exams were available for comparison FINDINGS: BONES: No acute fracture is present. No bony destructive lesion is seen. Bones appear osteopenic. T here is mild spurring at the articular aspect of the patella. JOINTS: The knee is normally aligned. No joint effusion is seen. SOFT TISSUE: Venous varicosities are noted in the medial subcutaneous fat. IMPRESSION: Mild degenerative changes. No acute abnormality. DATA REPOSITORY: RADIATION DOSE DELIVERED:
== END 2021-04-21 03:23 ==
DX: M17.11 Unilateral primary osteoarthritis, right knee (principal); M25.461 Effusion, right knee
CPT/HCPCS: 73562

== ENCOUNTER 2021-06-26 07:53 | Outpatient (CLI) | payer MEDICARE, BC, SELFPAY ==
[2021-06-26 12:51] LABS: ALT 23 U/L (14-59); AST 22 U/L (15-37); Albumin 3.8 g/dL (3.4-5.0); Alkaline Phosphatase 87 U/L (46-116); Anion Gap 8.2 mmol/L (3-11); BUN 20 mg/dL (7-18); Bilirubin, Total 0.5 mg/dL (0.2-1.0); CO2 27.8 mmol/L (21.0-32.0); Calculated LDL 116 mg/dL (<100); Chloride 104 mmol/L (98-107); Cholesterol 204 mg/dL (<200); Estimated GFR 53.35 (mL/min/1.73m2); Glucose 95 mg/dL (74-106); HDL Cholesterol 63 mg/dL (40-60); Potassium 4.3 mmol/L (3.5-5.1); Sodium 140 mmol/L (136-145); TSH (W/Ref FT4) 1.96 uIU/mL (0.36-3.74); Total Protein 6.9 g/dL (6.4-8.2); Triglyceride 128 mg/dL (<150)
== END 2021-06-26 07:54 | disposition home or self-care (01) ==
LOC: LOS 07:54
DX: I10 Essential (primary) hypertension (principal); E78.5 Hyperlipidemia, unspecified; E03.9 Hypothyroidism, unspecified; F32.9 Major depressive disorder, single episode, unspecified; K21.9 Gastro-esophageal reflux disease without esophagitis; G47.00 Insomnia, unspecified
CPT/HCPCS: 36415; 80053; 80061; 84443

== ENCOUNTER 2021-08-11 02:49 | Outpatient (CLI) | payer MEDICARE, BC, SELFPAY ==
--- NOTE | 2021-08-11 06:45 | DI.MAMMO_ITS ---
Exam(s) MAMMO SCREENING EXAM: MAMMO SCREENING CLINICAL HISTORY: screening,z12.39 TECHNIQUE: Mammograms were interpreted according to the usual protocol including computer analysis w [employer] CAD system, tomosynthesis and C-view imaging. COMPARISON: 2011 through 2019 FINDINGS: The breasts are composed of scattered fibroglandular densities, Breast Density category B. No suspicious masses or suspicious microcalcifications are seen. No skin thickening or abnormal axillary lymph nodes are seen. There has been no significant change from prior exams. IMPRESSION: BI-RADS Category 1, Negative mammogram Yearly screening mammography is recommended. Breast Density - Category B, scattered fibroglandular densities. A negative radiographic report should not delay biopsy if a dominant or clinically suspicious mass is present. Up to ten percent of cancers are not identified on mammography. A negative report may reinforce clinical impression. Adenosis and dense breasts may obscure an underlying neoplasm. False positive reports average 6 to 10%. Patient will receive a letter notifying them of these results.
== END 2021-08-11 03:09 ==
DX: Z12.31 Encounter for screening mammogram for malignant neoplasm of breast (principal)
CPT/HCPCS: 77063; 77067

== ENCOUNTER 2021-08-15 15:21 | Outpatient (REF) | payer MEDICARE, BC, SELFPAY ==
[2021-08-16 12:29] LABS: COVID-19 RT-PCR UVMMC Result Positive (Negative)
== END 2021-08-15 15:22 | disposition home or self-care (01) ==
LOC: LBN 15:21
PROVIDERS: Visit Provider Family Medicine
DX: Z20.822 Contact with and (suspected) exposure to COVID-19 (principal); R50.9 Fever, unspecified
CPT/HCPCS: U0003; U0005

== ENCOUNTER 2021-08-17 01:53 | Outpatient (CLI) | payer MEDICARE, BC, SELFPAY ==
[2021-08-17 10:31] VITALS: BP 144/87; PULSE 69; RESP 18; TEMP 36.7; O2SAT 98
[2021-08-17] MEDS: Normal Saline 500 ML 30 ML IV (10:55)
[2021-08-17] MEDS: Normal Saline Flush 10 ML SYR IVP (11:12)
[2021-08-17 11:25] VITALS: BP 133/81; PULSE 67; RESP 20; TEMP 36.8; O2SAT 98
[2021-08-17 12:15] VITALS: BP 144/81; PULSE 62; RESP 20; TEMP 36.6; O2SAT 96
== END 2021-08-17 01:54 | disposition home or self-care (01) ==
PROVIDERS: Visit Provider Family Medicine
DX: U07.1 COVID-19 (principal)
CPT/HCPCS: 96365

== ENCOUNTER → 2022-06-30 09:50 | Outpatient (CLI) | payer MEDICARE, BC, SELFPAY ==
--- NOTE | 2022-06-30 10:15 | DI.RAD_ITS ---
Exam(s) XR ELBOW LT COMPLETE EXAM: XR ELBOW LT COMPLETE CLINICAL HISTORY: fall onto left arm TECHNIQUE: COMPARISON: No exams were available for comparison FINDINGS: Three views were obtained. There is no evidence of acute fracture or dislocation. There is minimal soft tissue swelling over the olecranon. IMPRESSION: RADIATION DOSE DELIVERED: Total DLP
--- NOTE | 2022-06-30 10:15 | DI.RAD_ITS ---
Exam(s) XR SHOULDER LT COMPLETE 2+V EXAM: XR SHOULDER LT COMPLETE 2+V CLINICAL HISTORY: fall onto left arm TECHNIQUE: COMPARISON: CR XR shoulder LT complete 2+V from 02/10/2019 FINDINGS: Five views were obtained. There are moderate degenerative changes of glenohumeral and acromial clavi cular joints. No evidence of acute fracture or dislocation. IMPRESSION: RADIATION DOSE DELIVERED: Total DLP
--- NOTE | 2022-06-30 10:15 | DI.RAD_ITS ---
Exam(s) XR WRIST LT COMPLETE EXAM: XR WRIST LT COMPLETE CLINICAL HISTORY: fall onto left arm TECHNIQUE: COMPARISON: No exams were available for comparison FINDINGS: Three views were obtained. There is mild degenerative change of the joints of the carpus. There is no evidence of acute fracture or dislocation. IMPRESSION: RADIATION DOSE DELIVERED: Total DLP
--- NOTE | 2022-06-30 10:56 | DI.VRAD_ITS ---
PROCEDURE INFORMATION: Exam: XR Left Elbow Exam date and time: 06/30/2022 10:30 AM Age: 82 years old Clinical indication: Other: Fall TECHNIQUE: Imaging protocol: Radiologic exam of the Left elbow. Views: 3 or more views. COMPARISON: None provided. FINDINGS: Bones/joints: No acute fracture or dislocation is identified. There is minor enthesophyte formation off the medial and lateral epicondyles and posterior olecranon. There is no osseous erosion or cortical destruction. The fat pads are not significantly displaced. The bones appear osteopenic. Soft tissues: The soft tissues are mildly swollen dorsally. IMPRESSION: 1. Mild dorsal soft tissue swelling without evidence for acute fracture or dislocation. 2. Degenerative changes as described. 3. Apparent osteopenia. Dictated and Authenticated by: Darius Chamorro MD. Ordering:DOROTHY Roy MD
--- NOTE | 2022-06-30 10:58 | DI.VRAD_ITS ---
PROCEDURE INFORMATION: Exam: XR Left Shoulder Exam date and time: 06/30/2022 10:23 AM Age: 82 years old Clinical indication: Other: Fall TECHNIQUE: Imaging protocol: Radiologic exam of the Left shoulder. Views: 2 or more views. COMPARISON: CR XR shoulder LT complete 2+V 02/10/2019 9:54 AM FINDINGS: Bones/joints: No acute fracture or dislocation is identified. There is similar mild acromioclavicular arthrosis. Minor productive changes are again present along the greater tuberosity. There is no osseous erosion or cortical destruction. Degenerative changes again involve the spine. The bones again appear osteopenic. Lungs: Calcified granulomas are again present in the left lung. Soft tissues: The soft tissues appear grossly unremarkable. IMPRESSION: 1. No acute fracture or dislocation identified. 2. Degenerative changes similar to 02/10/2019. 3. Persistent apparent osteopenia. Dictated and Authenticated by: Darius Chamorro MD. Ordering:DOROTHY Roy MD
--- NOTE | 2022-06-30 10:59 | DI.VRAD_ITS ---
PROCEDURE INFORMATION: Exam: XR Left Wrist Exam date and time: 06/30/2022 10:28 AM Age: 82 years old Clinical indication: Other: Fall TECHNIQUE: Imaging protocol: Radiologic exam of the Left wrist. Views: 3 or more views. COMPARISON: No relevant prior studies available. FINDINGS: Bones/joints: No acute fracture or dislocation is identified. The bones appear osteopenic. Soft tissues: The soft tissues appear grossly unremarkable. IMPRESSION: 1. No acute fracture or dislocation identified. 2. Apparent osteopenia. Dictated and Authenticated by: Darius Chamorro MD. Ordering:DOROTHY Roy MD
== END ==
PROVIDERS: Visit Provider Physician Assistant
DX: M19.012 Primary osteoarthritis, left shoulder (principal); M19.032 Primary osteoarthritis, left wrist
CPT/HCPCS: 73030; 73080; 73110

== ENCOUNTER 2022-08-02 04:01 | Outpatient (CLI) | payer MEDICARE, BC, SELFPAY ==
[2022-08-02 12:48] LABS: ALT 15 U/L (14-59); AST 19 U/L (15-37); Albumin 3.8 g/dL (3.4-5.0); Alkaline Phosphatase 97 U/L (46-116); Anion Gap 7.8 mmol/L (3-11); BUN 16 mg/dL (7-18); Bilirubin, Total 0.4 mg/dL (0.2-1.0); CO2 28.2 mmol/L (21.0-32.0); Calcium 9.2 mg/dL (8.5-10.1); Calculated LDL 107 mg/dL (<100); Chloride 100 mmol/L (98-107); Cholesterol 197 mg/dL (<200); Glucose 89 mg/dL (74-106); HDL Cholesterol 62 mg/dL (40-60); Potassium 4.1 mmol/L (3.5-5.1); Sodium 136 mmol/L (136-145); Total Protein 7.3 g/dL (6.4-8.2); Triglyceride 143 mg/dL (<150)
== END 2022-08-02 04:02 | disposition home or self-care (01) ==
LOC: LOS 04:01
DX: E78.5 Hyperlipidemia, unspecified (principal); E03.9 Hypothyroidism, unspecified; I10 Essential (primary) hypertension; K21.9 Gastro-esophageal reflux disease without esophagitis
CPT/HCPCS: 36415; 80053; 80061; 84443

== ENCOUNTER 2022-12-24 02:32 | Outpatient (CLI) | payer MEDICARE, BC, SELFPAY ==
--- NOTE | 2022-12-24 06:45 | DI.CT_ITS ---
Exam(s) CT HEAD WO EXAM: CT HEAD WO CLINICAL HISTORY: fall with head/ face injury,RECURRENT FALLS, R29.6. TECHNIQUE: Imaging Protocol: Axial computed tomography images with coronal and sagittal reformatted images were created and reviewed FINDINGS: There are no skull fractures. There is mucosal thickening in left maxillary sinus and partially calci fied polyp therein. Right maxillary sinus is clear as are the other paranasal sinuses including the frontal sinuses. There is no evidence of intracranial hemorrhage, mass effect, or shift of midline structures. There are no extra-axial fluid collections. The ventricles are not enlarged or shifted and there is no blo od within the ventricular system nor within the basal cisterns. There is bilateral periventricular hypodensity consistent with chronic small vessel disease. There a re bilateral nonhemorrhagic basal ganglia lacunar infarcts, and there is calcification in the vascula ture of the skull base including internal carotid arteries as well as the vertebral arteries. Also l acunar infarct higher up in left centrum semiovale. IMPRESSION: Chronic white matter ischemic changes including bilateral definitive nonhemorrhagic lacunar infarcts which do not have acute appearance but do not appear to have been present on prior CT scan 06/29/2018 RADIATION DOSE DELIVERED: 641.68mGy.cm Total DLP DATA REPOSITORY: All CT scans at this facility are submitted to the National Radiology Data Registry (NRDR) Dose Index Registry (DIR) with the [employer] (ACR). RADIATION OPTIMIZATION: All CT scans at this facility use at least one of these dose optimization te chniques: automated exposure control; mA and/or kV adjustment per patient size (includes targeted exa ms where dose is matched to clinical indication); or iterative reconstruction.
== END 2022-12-24 02:52 ==
LOC: DI 02:32
PROVIDERS: PCP Nurse Practitioner Family; Visit Provider Nurse Practitioner Family
DX: R29.6 Repeated falls (principal); S00.83XA Contusion of other part of head, initial encounter; I67.89 Other cerebrovascular disease
CPT/HCPCS: 70450

== ENCOUNTER 2022-12-24 03:52 | Outpatient (CLI) | payer MEDICARE, BC, SELFPAY ==
[2022-12-24 12:26] LABS: Abs Immature Grans 0.05 10^3/uL (0.0-0.06); Absolute Basophil Count 0.03 10^3/uL (0.0-0.2); Absolute Eosinophil Count 0.14 10^3/uL (0.0-0.7); Absolute Lymphocyte Count 1.32 10^3/uL (1.2-3.4); Absolute Monocyte Count 0.64 10^3/uL (0.1-0.8); Absolute Neutrophil Count 3.17 10^3/uL (1.2-6.7); Basophils % 0.6; Eosinophils % 2.6; HCT 35.8 % (36.0-46.0); HGB 11.7 g/dL (11.2-15.7); Immature Grans % 0.9; Lymphocytes % 24.7; MCH 31.5 pg (27.0-33.0); MCHC 32.7 % (32.0-36.0); MCV 97 fL (80-95); MPV 11.2 fL (8.0-11.0); Neutrophils % 59.2; Platelet Count 208 10^3/uL (130-400); RBC 3.71 10^6/uL (3.93-5.22); RDW 12.2 % (11.7-14.6); RDW-SD 42.6 fL; WBC 5.35 10^3/uL (4.4-10.8)
[2022-12-24 12:46] LABS: ALT 17 U/L (14-59); AST 16 U/L (15-37); Albumin 3.6 g/dL (3.4-5.0); Alkaline Phosphatase 106 U/L (46-116); Anion Gap 9.2 mmol/L (3-11); BUN 17 mg/dL (7-18); Bilirubin, Total 0.3 mg/dL (0.2-1.0); CO2 27.8 mmol/L (21.0-32.0); Calcium 9.2 mg/dL (8.5-10.1); Chloride 103 mmol/L (98-107); Glucose 107 mg/dL (74-106); Potassium 4.3 mmol/L (3.5-5.1); Sodium 140 mmol/L (136-145); Total Protein 7.2 g/dL (6.4-8.2)
== END 2022-12-24 03:53 | disposition home or self-care (01) ==
LOC: LOS 03:52
PROVIDERS: PCP Nurse Practitioner Family; Visit Provider Nurse Practitioner Family
DX: R29.6 Repeated falls (principal); N39.3 Stress incontinence (female) (male); I10 Essential (primary) hypertension; F41.8 Other specified anxiety disorders; E03.9 Hypothyroidism, unspecified; E78.5 Hyperlipidemia, unspecified
CPT/HCPCS: 36415; 80053; 70450; 85025

== ENCOUNTER → 2023-01-03 13:42 | Outpatient (BNVA) | payer MEDICARE, BC, SELFPAY | PROVIDERS: PCP Nurse Practitioner Family; Referring Provider Nurse Practitioner Family; Visit Provider Psychiatry & Neurology Neurology | DX: R29.6 Repeated falls (principal); Z86.73 Personal history of transient ischemic attack (TIA), and cerebral infarction without residual deficits; R42 Dizziness and giddiness; R90.89 Other abnormal findings on diagnostic imaging of central nervous system | CPT/HCPCS: 99214 ==

== ENCOUNTER 2023-01-17 01:13 | Outpatient (CLI) | payer MEDICARE, BC, SELFPAY ==
--- NOTE | 2023-01-17 08:30 | DI.MRI_ITS ---
Exam(s) MR ANGIO NECK WO EXAM: MR ANGIO NECK WO CLINICAL HISTORY: L frontal stroke, EPISODE DIZZINESS, R42, CEREBRAL INFARCTION, I63.9. TECHNIQUE: Multiplanar multisequence MRA of the Neck was performed. COMPARISON: No exams were available for comparison FINDINGS: Common Carotid: Right: No dissection, occlusion or significant stenosis. Left: No dissection, occlusion or significant stenosis. External Carotid: Right: No evidence of occlusion or significant stenosis. Left: No evidence of occlusion or significant stenosis. Internal Carotid: Right: No dissection, occlusion or significant stenosis. Left: No dissection, occlusion or significant stenosis. Vertebral Artery: Right: No dissection, occlusion or significant stenosis. Left: No dissection, occlusion or significant stenosis. IMPRESSION: No evidence of dissection, occlusion or significant stenosis. DATA REPOSITORY:
--- NOTE | 2023-01-17 08:30 | DI.MRI_ITS ---
Exam(s) MR BRAIN WO EXAM: MR BRAIN WO CLINICAL HISTORY: stroke; L frontal, I63.9, CEREBRAL INFARCTION. TECHNIQUE: Multiplanar multisequence MRI of the brain was performed. CONTRAST MATERIAL: Noncontrast COMPARISON: CT CT HEAD WO from 12/24/2022 MR MR ANGIO BRAIN WO from 01/17/2023 FINDINGS: VENTRICLES AND EXTRA AXIAL SPACES: Normal in size and morphology for the patient's age. HEMORRHAGE: None. CEREBRAL PARENCHYMA: Small focus of old infarction in the left frontal lobe. No focus of restricted d iffusion to suggest acute infarct. No space-occupying lesion identified. White matter changes of smal l vessel disease. MIDLINE SHIFT: None. BRAINSTEM/CEREBELLUM: Normal. CALVARIUM: Normal. VISUALIZED PARANASAL SINUSES/MASTOIDS: Clear. OTHER FINDINGS: None. IMPRESSION: Old lacunar infarct left frontal lobe. No acute abnormalities. DATA REPOSITORY:
--- NOTE | 2023-01-17 08:30 | DI.MRI_ITS ---
Exam(s) MR ANGIO BRAIN WO CLINICAL HISTORY: L frontal stroke, EPISODE DIZZINESS, R42, I63.9, CEREBRAL INFARCTION. TECHNIQUE: 3D qicd-za-ahnmxy study was performed without contrast. COMPARISON: None. FINDINGS: Carotid Arteries: Petrous: Normal. Cavernous: Normal. Cerebral: Normal. Middle Cerebral Arteries: Right: No aneurysm or significant stenosis. Left: No aneurysm or significant stenosis. Anterior Cerebral Arteries: Right: No aneurysm or significant stenosis. Left: No aneurysm or significant stenosis. Posterior cerebral arteries: Right: No aneurysm or significant stenosis Left: No aneurysm or significant stenosis Vertebral Arteries: Right: No aneurysm or significant stenosis. No dissection. Left: No aneurysm or significant stenosis. No dissection.. Basilar Artery: No aneurysm or significant stenosis. Small Vessels: No evidence of beading. IMPRESSION: Normal MRA examination of the [place]. DATA REPOSITORY:
== END 2023-01-17 01:33 ==
LOC: DI 01:14
PROVIDERS: PCP Nurse Practitioner Family; Visit Provider Psychiatry & Neurology Neurology
DX: R42 Dizziness and giddiness (principal); I63.89 Other cerebral infarction; R90.89 Other abnormal findings on diagnostic imaging of central nervous system; R29.6 Repeated falls
CPT/HCPCS: 70544; 70547; 70551

== ENCOUNTER 2023-01-18 12:51 | Outpatient (CLI) | payer MEDICARE, BC, SELFPAY | END 2023-01-18 12:52 | disposition home or self-care (01) | PROVIDERS: PCP Nurse Practitioner Family; Visit Provider Psychiatry & Neurology Neurology | DX: I63.9 Cerebral infarction, unspecified (principal) | CPT/HCPCS: 93270 ==

== ENCOUNTER 2023-02-21 15:14 | Outpatient (CLI) | payer MEDICARE, BC, SELFPAY ==
--- NOTE | 2023-02-21 15:24 | CER_ITS ---
Date of service: 02/21/23 Time of Service: 15:24 Cardiac Event Recorder Referring Provider:: Reina Rg Indications:: Cerebral infarction Cardiac Event Note: This is a cardiac event monitor. Patient was monitored for 18 days and 12 hours Predominant rhythm was sinus with first-degree AV block. Average heart rate was 78. Maximum heart rate was 106 There were rare ventricular ectopic beats. There was one 4 beat run of nonsust ained ventricular tachycardia There was no atrial fibrillation, no high-grade AV block, no pauses greater than 3 seconds There were no apparent patient's symptoms
== END 2023-02-21 15:15 | disposition home or self-care (01) ==
LOC: CARDOPNVT 15:14
PROVIDERS: PCP Nurse Practitioner Family; Visit Provider Internal Medicine Cardiovascular Disease
DX: I63.9 Cerebral infarction, unspecified (principal); I44.0 Atrioventricular block, first degree; I47.20 Ventricular tachycardia, unspecified
CPT/HCPCS: 93272

== ENCOUNTER → 2023-04-04 13:11 | Outpatient (BNVA) | payer MEDICARE, BC, SELFPAY | PROVIDERS: PCP Nurse Practitioner Family; Referring Provider Nurse Practitioner Family; Visit Provider Psychiatry & Neurology Neurology | DX: R29.6 Repeated falls (principal); Z86.73 Personal history of transient ischemic attack (TIA), and cerebral infarction without residual deficits; Z79.82 Long term (current) use of aspirin; Z79.02 Long term (current) use of antithrombotics/antiplatelets; R00.2 Palpitations | CPT/HCPCS: 99213 ==

== ENCOUNTER → 2023-06-12 17:49 | Outpatient (CLI) | payer MEDICARE, BC, SELFPAY ==
--- NOTE | 2023-06-12 17:30 | DI.RAD_ITS ---
Exam(s) XR ABDOMEN FLAT PLATE EXAM: XR ABDOMEN FLAT PLATE CLINICAL HISTORY: evaluate for constipation. TECHNIQUE: 2D digital imaging was performed. COMPARISON: No exams were available for comparison FINDINGS: Single AP view of the abdomen-pelvis: Bowel gas pattern is nonspecific although there does appear to be abundant fecal material throughout the colon. There is a 1 cm calcification in the central pelvis which is either in the urinary bladde r or calcified uterine fibroid. There are 4 adjacent calcifications in left upper quadrant which are either in the superior aspect of the left kidney or splenic granulomas. Regional bones appear age-appropriate. No fractures nor osseous lesions evident IMPRESSION: As above. DATA REPOSITORY: RADIATION DOSE DELIVERED:
== END ==
PROVIDERS: PCP Nurse Practitioner Family; Visit Provider Nurse Practitioner Family
DX: K59.00 Constipation, unspecified (principal)
CPT/HCPCS: 74018

== ENCOUNTER → 2023-07-02 00:22 | Outpatient (CLI) | payer MEDICARE, BC, SELFPAY ==
--- NOTE | 2023-07-02 07:45 | DI.MAMMO_ITS ---
Exam(s) MAMMO SCREENING EXAM: MAMMO SCREENING CLINICAL HISTORY: screening,z12.39 TECHNIQUE: Bilateral full field digital CC and MLO mammographic images were obtained with 3D tomosyn thesis and utilizing computer aided detection (CAD). COMPARISON: Available for comparison. FINDINGS: Masses/Architectural Distortion: None seen. Microcalcifications: No suspicious pleomorphic-type are seen. Skin Thickening/Nipple Retraction: None. IMPRESSION: 1. No significant interval change with no specific features of malignancy noted. 2. Unless there is more urgent need, screening mammography is recommended, as per [employer] guidelines. BI-RADS Category 1 - Negative Breast Density - Category B - Scattered areas of fibroglandular density Breast density category C or D implies that the patient has dense breast tissue. Dense breast tissue is very common and is not abnormal but dense breast tissue can make it harder to find cancer on a ma mmogram. Also, dense breast tissue may increase their breast cancer risk. This information about the result of the mammogram report was provided to the patient to raise their awareness. Use this report when you speak with the patient about their risks for breast cancer, which includes their family hist ory. At that time, you may recommend for more screening tests (Ultrasound or MRI) as they might be us eful based on their risk. A negative radiographic report should not delay biopsy if a dominant or clinically suspicious mass is present. Up to ten percent of cancers are not identified on mammography. A negative report may reinforce clinical impression. Adenosis and dense breasts may obscure an underlying neoplasm. False positive reports average 6 to 10%. Patient will receive a letter notifying them of these results.
== END ==
PROVIDERS: PCP Nurse Practitioner Family; Visit Provider Obstetrics & Gynecology
DX: Z12.31 Encounter for screening mammogram for malignant neoplasm of breast (principal)
CPT/HCPCS: 77063; 77067

== ENCOUNTER 2023-08-20 01:01 | Outpatient (CLI) | payer MEDICARE, BC, SELFPAY ==
[2023-08-20 12:23] LABS: HCT 35.2 % (36.0-46.0); HGB 11.4 g/dL (11.2-15.7); MCH 30.9 pg (27.0-33.0); MCHC 32.4 % (32.0-36.0); MCV 95 fL (80-95); MPV 10.8 fL (8.0-11.0); Platelet Count 174 10^3/uL (130-400); RBC 3.69 10^6/uL (3.93-5.22); RDW 12.4 % (11.7-14.6); RDW-SD 43.3 fL; WBC 4.59 10^3/uL (4.4-10.8)
[2023-08-20 12:56] LABS: ALT 17 U/L (14-59); AST 19 U/L (15-37); Albumin 3.4 g/dL (3.4-5.0); Alkaline Phosphatase 93 U/L (46-116); Anion Gap 6.3 mmol/L (3-11); BUN 12 mg/dL (7-18); Bilirubin, Total 0.4 mg/dL (0.2-1.0); CO2 29.7 mmol/L (21.0-32.0); CREATININE 0.9 mg/dL (0.55-1.02); Calcium 9.1 mg/dL (8.5-10.1); Calculated LDL 112 mg/dL (<100); Chloride 100 mmol/L (98-107); Cholesterol 192 mg/dL (<200); Estimated GFR 63.83 (mL/min/1.73m2); Glucose 99 mg/dL (74-106); HDL Cholesterol 54 mg/dL (40-60); Potassium 4.1 mmol/L (3.5-5.1); Sodium 136 mmol/L (136-145); TSH (W/Ref FT4) 3.14 uIU/mL (0.36-3.74); Triglyceride 134 mg/dL (<150)
== END 2023-08-20 01:02 | disposition home or self-care (01) ==
LOC: LOS 01:01
PROVIDERS: PCP Nurse Practitioner Family; Visit Provider Nurse Practitioner Family
DX: E78.5 Hyperlipidemia, unspecified (principal); G47.00 Insomnia, unspecified; I10 Essential (primary) hypertension; E03.9 Hypothyroidism, unspecified
CPT/HCPCS: 36415; 80053; 80061; 85027; 84443

== ENCOUNTER 2024-08-13 03:43 | Outpatient (CLI) | payer MEDICARE, BC, SELFPAY ==
[2024-08-13 12:24] LABS: HCT 37.8 % (36.0-46.0); HGB 11.8 g/dL (11.2-15.7); MCH 30.8 pg (27.0-33.0); MCHC 31.2 % (32.0-36.0); MCV 99 fL (80-95); MPV 11.3 fL (8.0-11.0); Platelet Count 177 10^3/uL (130-400); RBC 3.83 10^6/uL (3.93-5.22); RDW 12.3 % (11.7-14.6); RDW-SD 44.3 fL; WBC 3.95 10^3/uL (4.4-10.8)
[2024-08-13 12:30] LABS: Hemoglobin A1C 5.8 % (<5.7)
[2024-08-13 12:39] LABS: ALT 18 U/L (14-59); AST 17 U/L (15-37); Albumin 3.3 g/dL (3.4-5.0); Alkaline Phosphatase 103 U/L (46-116); Anion Gap 7.1 mmol/L (3-11); BUN 14 mg/dL (7-18); Bilirubin, Total 0.38 mg/dL (0.2-1.0); CO2 29.9 mmol/L (21.0-32.0); CREATININE 0.9 mg/dL (0.55-1.02); Calcium 9.2 mg/dL (8.5-10.1); Calculated LDL 199 mg/dL (<100); Chloride 103 mmol/L (98-107); Cholesterol 294 mg/dL (<200); Estimated GFR 63.43 (mL/min/1.73m2); Glucose 94 mg/dL (74-106); HDL Cholesterol 60 mg/dL (40-60); Potassium 4.3 mmol/L (3.5-5.1); Sodium 140 mmol/L (136-145); TSH (W/Ref FT4) 2.72 uIU/mL (0.36-3.74); Triglyceride 179 mg/dL (<150)
== END 2024-08-13 03:44 | disposition home or self-care (01) ==
LOC: LOS 03:43
PROVIDERS: PCP Nurse Practitioner Family; Visit Provider Nurse Practitioner Family
DX: E03.9 Hypothyroidism, unspecified; E78.5 Hyperlipidemia, unspecified; I10 Essential (primary) hypertension; I65.29 Occlusion and stenosis of unspecified carotid artery; F32.9 Major depressive disorder, single episode, unspecified; F41.9 Anxiety disorder, unspecified; R73.09 Other abnormal glucose
CPT/HCPCS: 36415; 80053; 80061; 85027; 83036; 84443

== ENCOUNTER 2024-10-02 12:26 | Emergency (ER) | payer MEDICARE, BC, SELFPAY ==
[2024-10-02] VITALS (8 sets, daily range): BP systolic 156–199; BP diastolic 100–139; PULSE 77–87; RESP 13–18; TEMP 36.4; O2SAT 94–97
[2024-10-02] MEDS: Meclizine 25 MG TAB PO (13:12)
[2024-10-02 13:58] LABS: Abs Immature Grans 0.03 10^3/uL (0.0-0.06); Absolute Basophil Count 0.03 10^3/uL (0.0-0.2); Absolute Eosinophil Count 0.11 10^3/uL (0.0-0.7); Absolute Lymphocyte Count 1.46 10^3/uL (1.2-3.4); Absolute Monocyte Count 0.63 10^3/uL (0.1-0.8); Absolute Neutrophil Count 3.44 10^3/uL (1.2-6.7); Basophils % 0.5 %; Eosinophils % 1.9 %; HCT 38.9 % (36.0-46.0); HGB 12.8 g/dL (11.2-15.7); Immature Grans % 0.5 %; Lymphocytes % 25.6 %; MCH 32.1 pg (27.0-33.0); MCHC 32.9 % (32.0-36.0); MCV 98 fL (80-95); MPV 10.9 fL (8.0-11.0); Monocytes % 11.1 %; Neutrophils % 60.4 %; Platelet Count 176 10^3/uL (130-400); RBC 3.99 10^6/uL (3.93-5.22); RDW 12.3 % (11.7-14.6); RDW-SD 44.3 fL
[2024-10-02] MEDS: Omnipaque 350 MG/ML 100 ML BTL IJ (14:05)
[2024-10-02] MEDS: Normal Saline - Diluent 50 ML VIAL IJ (14:06)
[2024-10-02 14:13] LABS: ALT 18 U/L (14-59); AST 18 U/L (15-37); Albumin 3.8 g/dL (3.4-5.0); Alkaline Phosphatase 117 U/L (46-116); Anion Gap 6.1 mmol/L (3-11); BUN 14 mg/dL (7-18); Bilirubin, Total 0.52 mg/dL (0.2-1.0); CO2 30.9 mmol/L (21.0-32.0); CREATININE 0.9 mg/dL (0.55-1.02); Calcium 9.7 mg/dL (8.5-10.1); Chloride 101 mmol/L (98-107); Estimated GFR 63.43 (mL/min/1.73m2); Glucose 103 mg/dL (74-106); Potassium 4.5 mmol/L (3.5-5.1); Sodium 138 mmol/L (136-145); Total Protein 7.8 g/dL (6.4-8.2)
--- NOTE | 2024-10-02 14:15 | DI.CT_ITS ---
Exam(s) CT BRAIN NECK CTA EXAM: CT BRAIN NECK CTA CLINICAL HISTORY: DIZZINESSS. TECHNIQUE: Imaging Protocol: Axial CT angiography was performed with multi-slice acquisition and mu lti-planar and/or 3D reconstructions. CONTRAST MATERIAL: Intravenous: Omnipaque 350 contrast volume:70 mL COMPARISON: CT CT HEAD WO from 12/24/2022 FINDINGS: CT Head W/O and W: Ventricles and Extra axial spaces: Normal in size and morphology for the patient's age. Hemorrhage: None. Cerebral parenchyma: There are areas of decreased attenuation in the white matter most consistent wit h chronic microvascular ischemic disease. No mass effect is identified. No evidence of an acute ter ritorial infarct is seen. Stable bilateral old lacunar infarcts are present. Midline shift: None. Brainstem/Cerebellum: Normal. Calvarium: Normal. Visualized Paranasal sinuses/Mastoids: Clear. Soft Tissues: Unremarkable. Enhancement: Unremarkable. CTA Neck W: Common Carotid: Right: No dissection, occlusion or significant stenosis. There is mild atherosclerosis present in th e common carotid artery. Left: No dissection, occlusion or significant stenosis. There is mild atherosclerosis present in the common carotid artery. External Carotid: Right: No occlusion or significant stenosis. Left: No occlusion or significant stenosis. There is atherosclerosis present at the origin of the ex ternal carotid artery. Internal Carotid: Right: No dissection, occlusion or significant stenosis. There is atherosclerotic calcification seen at the proximal internal carotid artery. Left: No dissection, occlusion or significant stenosis. Atherosclerotic calcification is seen at the origin of the left internal carotid artery. Vertebral Artery: Right: No dissection, occlusion or significant stenosis. Left: No dissection, occlusion or significant stenosis. Atherosclerotic calcification is seen at the origin of the left vertebral artery. Lung Apices: Calcified granuloma seen in the left upper lobe. No focal consolidating infiltrates are seen in the lung apices. Bones: Within normal limits for the patient's age. There is a nonunited posterior arch of C1 which is in normal variant. There is a right convex curvature of the cervical spine. Soft Tissues: Normal. Thyroid gland: Unremarkable. CTA Brain W: Internal Carotid Arteries: There is mild atherosclerotic calcifications seen bilaterally, but no aneu rysm occlusion or significant stenosis is present. Anterior Cerebral Arteries: Right: No aneurysm, occlusion or significant stenosis. Left: No aneurysm, occlusion or significant stenosis. Middle Cerebral Arteries: Right: No aneurysm, occlusion or significant stenosis. Left: No aneurysm, occlusion or significant stenosis. Posterior Cerebral Arteries: The posterior cerebral arteries originate, in part, from the posterior c ommunicating arteries. This is a normal variant. Right: No aneurysm, occlusion or significant stenosis. Left: No aneurysm, occlusion or significant stenosis. Vertebral Arteries: Right: No aneurysm, occlusion or significant stenosis. Left: No aneurysm, occlusion or significant stenosis. Basilar Artery: No aneurysm, occlusion or significant stenosis. IMPRESSION: 1. No large vessel occlusion or significant stenosis on the CT angiography of the head. 2. No acute intracranial process. 3. No occlusion or significant stenosis on the CT angiography of the neck. RADIATION DOSE DELIVERED: 2,112.82mGy.cm Total DLP DATA REPOSITORY: All CT scans at this facility are submitted to the National Radiology Data Registry (NRDR) Dose Index Registry (DIR) with the [employer] (ACR). RADIATION OPTIMIZATION: All CT scans at this facility use at least one of these dose optimization te chniques: automated exposure control; mA and/or kV adjustment per patient size (includes targeted exa ms where dose is matched to clinical indication); or iterative reconstruction.
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
== END 2024-10-02 15:19 | disposition home or self-care (01) ==
PROVIDERS: Emergency Provider Emergency Medicine; PCP Nurse Practitioner Family
DX: R42 Dizziness and giddiness (principal); Z86.73 Personal history of transient ischemic attack (TIA), and cerebral infarction without residual deficits; I10 Essential (primary) hypertension
CPT/HCPCS: 70496; 70498; 80053; 99285; 83735; 85025; 99284; J3490

== ENCOUNTER 2024-10-27 01:50 | Outpatient (CLI) | payer MEDICARE, BC, SELFPAY ==
--- NOTE | 2024-10-27 13:40 | DI.RAD_ITS ---
Exam(s) XR FOOT RT COMPLETE EXAM: XR FOOT RT COMPLETE CLINICAL HISTORY: Right foot and toe pain,m79.671,m79.674. TECHNIQUE: 2D digital imaging was performed. Three views. COMPARISON: No exams were available for comparison FINDINGS: BONES: No acute fracture is present. No bony destructive lesion is seen. Small plantar calcaneal spu r. Small spur at the dorsal aspect of the talus. JOINTS: No dislocation present. Minimal degenerative changes at 1st MTP joint. SOFT TISSUE: Normal. IMPRESSION: Small heel spur. Minimal degenerative changes. DATA REPOSITORY: RADIATION DOSE DELIVERED:
== END 2024-10-27 02:10 ==
LOC: DI 01:50
PROVIDERS: PCP Nurse Practitioner Family; Visit Provider Podiatrist
DX: M79.671 Pain in right foot (principal); M79.674 Pain in right toe(s)
CPT/HCPCS: 73630

== ENCOUNTER 2025-01-18 09:44 | Outpatient (REF) | payer MEDICARE, BC, SELFPAY | END 2025-01-18 09:45 | disposition home or self-care (01) | LOC: LBN 09:44 | PROVIDERS: PCP Nurse Practitioner Family; Visit Provider Nurse Practitioner Women's Health | DX: R30.0 Dysuria (principal) | CPT/HCPCS: 87077; 87086; 87186 ==

== ENCOUNTER 2025-04-15 01:27 | Outpatient (CLI) | payer MEDICARE, BC, SELFPAY ==
--- NOTE | 2025-04-15 07:00 | DI.RAD_ITS ---
Exam(s) XR HIP RT COMPLETE AP PELVIS EXAM: XR HIP RT COMPLETE AP PELVIS CLINICAL HISTORY: right hip pain,m25.551. TECHNIQUE: 2D digital imaging was performed. COMPARISON: No exams were available for comparison FINDINGS: Two views No evidence of pelvic nor hip fracture. Minimal hip joint degenerative changes. Additional frog-lateral view of the right hip does not reveal significant joint space narrowing. Bone density is age-appropriate. No osseous lesions. Calcification in the central pelvis is probably a small uterine fibroid. IMPRESSION: No acute osseous findings in the pelvis and hips. DATA REPOSITORY: RADIATION DOSE DELIVERED:
== END 2025-04-15 01:47 ==
LOC: DI 01:28
PROVIDERS: PCP Nurse Practitioner Family; Visit Provider Nurse Practitioner Family
DX: M25.551 Pain in right hip (principal)
CPT/HCPCS: 73502

== ENCOUNTER 2025-08-26 00:53 | Outpatient (CLI) | payer MEDICARE, BC, SELFPAY ==
[2025-08-26 15:00] LABS: TSH (W/Ref FT4) 2.33 uIU/mL (0.55-4.78)
[2025-08-26 15:21] LABS: ALT 14 U/L (10-49); AST 23 U/L (<34); Albumin 4.0 g/dL (3.4-5.0); Alkaline Phosphatase 99 U/L (46-116); Anion Gap 6.5 mmol/L (3-11); BUN 14 mg/dL (9-23); Bilirubin, Total 0.40 mg/dL (0.2-1.2); CO2 30.5 mmol/L (20.0-31.0); Calcium 9.2 mg/dL (8.3-10.6); Chloride 103 mmol/L (98-107); Cholesterol 174 mg/dL (<200); Glucose 88 mg/dL (74-106); HDL Cholesterol 54 mg/dL (>40); Potassium 4.2 mmol/L (3.5-5.1); Sodium 140 mmol/L (136-145); Total Protein 6.8 g/dL (5.7-8.2)
[2025-08-26 16:21] LABS: Hemoglobin A1C 5.8 % (<5.7)
== END 2025-08-26 00:54 | disposition home or self-care (01) ==
LOC: LOS 00:54
PROVIDERS: PCP Nurse Practitioner Family; Visit Provider Nurse Practitioner Family
DX: E78.5 Hyperlipidemia, unspecified (principal); E03.9 Hypothyroidism, unspecified; M81.0 Age-related osteoporosis without current pathological fracture; I10 Essential (primary) hypertension; R73.03 Prediabetes
CPT/HCPCS: 36415; 80053; 80061; 83036; 84443